=== PATIENT | male | born 1950 | race Caucasian/White ===

== ENCOUNTER → 2017-06-16 | Outpatient (CLI) | payer OTHER ==
[~2017-06-16] MED LIST: AMB10 PO; AMT10 PO; FLX10 PO; NXM/40 PO; OXYC-57 PO; PRAV20TA PO
--- NOTE | 2017-06-16 11:03 | DIAGNOSTIC IMAGING REPORT ---
MRI OF THE LUMBAR SPINE WITHOUT CONTRAST CLINICAL HISTORY: Lumbar radiculopathy. Left hip pain and left leg weakness. COMPARISON STUDY: No previous studies for comparison. TECHNIQUE: Utilizing a 1.5 Luana magnet and dedicated coil, multiplanar, multiecho imaging of the lumbar spine was performed without IV contrast. FINDINGS: For purposes of numbering on this exam, the L5-S1 disc space is assigned to axial image 23 of 25. Vertebral body heights are maintained. There is no suspicious marrow replacement. A 2.5 cm T1 and T2 hyperintense lesion within the L2 vertebral body reflects a hemangioma. A few smaller hemangiomas are noted. There is marked disc space narrowing with discogenic changes at L4-L5. There is no intracanalicular mass or fluid collection. The conus terminates at the mid L1 level. Paravertebral soft tissues are unremarkable. L1-2: The central canal and neural foramen are patent. L2-3: The central canal and neural foramen are patent. L3-4: There is mild disc bulge and facet arthrosis. The central canal and the neural foramen are patent. L4-5: There is disc space noted with disc bulge, ligamentous hypertrophy and facet arthrosis. This results in mild to moderate narrowing of the central canal, lateral recesses and neural foramen at this level. L5-S1: The central canal and neural foramen are patent. IMPRESSION: 1. Mild to moderate narrowing of the central canal, lateral recesses and neural foramen at L4-L5 due to disc bulge, ligamentous hypertrophy and facet arthrosis. 2. Otherwise, mild multilevel degenerative changes of the lumbar spine. 3. No lumbar spine fracture. Electronically signed by: Chan Garza M.D. 06/16/2017 11:02 AM Dictated Date/Time: 06/16/2017 10:56 AM
== END ==
LOC: C.MRI 08:59
PROVIDERS: ATTEND Physician Assistant
DX: M54.16 Radiculopathy, lumbar region (principal); R29.898 Other symptoms and signs involving the musculoskeletal system

== ENCOUNTER 2020-12-05 19:00 | Inpatient (IN) ==
[2020-12-05] MEDS ORDERED: ALBUT/IPRATROP 3MG/0.5MG NEB 3 ML VIAL NEB STA (19:28)
[2020-12-05] MEDS ORDERED: SODIUM CHLORIDE 0.9% 1000ML 1,000 ML IV ONE ×3 (19:28→22:49)
--- NOTE | 2020-12-05 19:50 | XRay Report ---
XR chest 1V portable HISTORY: Hypoxic. Altered mental status. COMPARISON: Chest 02/02/2018. FINDINGS: No pneumothorax. No pleural effusions. A few bibasilar linear densities consistent with sub segmental atelectasis or scarring. Otherwise, no focal lung consolidations to suggest pneumonia. No e vidence for pulmonary edema. The heart is normal in size. Incidental note is made of a right azygos l obe. IMPRESSION: No acute process. ACT 112: Negative or not required by law. Electronically signed by: French Isabel M.D. 12/05/2020 7:49 PM
[2020-12-05 20:03] LABS: Basophils # (auto) 0.01 K/uL (0-0.2); Basophils % (auto) 0.1 %; Hematocrit (blood only) 41.1 % (42-52); Hemoglobin 13.6 g/dL (14.0-18.0); Immature Granulocytes # (auto) 0.17 K/uL (0.00-0.02); Immature Granulocytes % (auto) 2.4 %; Lymphocytes # (auto) 0.49 K/uL (1.2-3.4); Lymphocytes % (auto) 6.8 %; Mean Corpuscular Hemoglobin 33.8 pg (25-34); Mean Corpuscular Hgb Conc 33.1 g/dL (32-36); Mean Corpuscular Volume 102.2 fL (80-100); Mean Platelet Volume 11.1 fL (7.4-10.4); Monocytes # (auto) 0.38 K/uL (0.11-0.59); Monocytes % (auto) 5.3 %; Neutrophils # (auto) 6.15 K/uL (1.4-6.5); Neutrophils % (auto) 85.4 %; Nucleated RBC # (auto) 0.07 K/uL (0-0); Platelet Count 208 K/uL (130-400); RDW Coefficient of Variation 13.5 % (11.5-14.5); Red Blood Count 4.02 M/uL (4.7-6.1)
[2020-12-05 20:16] LABS: Albumin Level 2.7 gm/dl (3.4-5.0); BUN Creatinine Ratio 21.9 (10-20); Bilirubin Direct 0.2 mg/dl (0-0.2); Bilirubin,Total 0.7 mg/dl (0.2-1); Calcium 8.8 mg/dl (8.5-10.1); Est GFR (African American) 37.6 ml/min; Est GFR (Non-African American) 32.4 ml/min; Magnesium 3.2 mg/dl (1.8-2.4); Potassium 4.5 mmol/L (3.5-5.1)
[2020-12-05 20:31] LABS: Base Excess VBG 2.3 mEq/L; HCO3 VBG 29 mmol/L; PCO2 VBG 53 mmHg (38-50); PO2 VBG 24 mmHg; pH VBG 7.36 (7.36-7.41)
[2020-12-05 20:34] LABS: Oxygen Saturation VBG < 60.0 %
--- NOTE | 2020-12-05 20:41 | CT Scan Report ---
HEAD CT NONCONTRAST CT DOSE: 884.08 mGy.cm HISTORY: Altered mental status. TECHNIQUE: Multiaxial CT images of the head were performed without the use of intravenous contrast. A utomated exposure control was utilized for this study. A dose lowering technique was utilized adheri ng to the principles of ALARA. Comparison: None. Findings: The paranasal sinuses and mastoid air cells are clear. The calvarium and skull base are int act. There is no mass, hematoma, midline shift, acute infarct. White matter hypodensity is nonspecifi c but suggestive of microvascular ischemic change. The ventricles and sulci demonstrate mild age-rela brennan involutional changes. Impression: No acute intracranial abnormality. ACT 112: Negative or not required by law. Electronically signed by: French Isabel M.D. 12/05/2020 8:40 PM
[2020-12-05 20:51] LABS: Beta-Hydroxybutyrate 19.84 mg/dl (0.2-2.81)
[2020-12-05] MEDS ORDERED: STAT IV Infusion **Titration per Protocol STA ×4 (21:53→23:37)
[2020-12-05] MEDS ORDERED: NORMOSOL-R 1,000 ML IV SCH (22:00)
[2020-12-05] MEDS ORDERED: NSS + 20MEQ KCL 20 MEQ/1,000 ML BAG IV SCH (22:00)
[2020-12-05] MEDS ORDERED: INSULIN REGULAR 250 UNITS in SODIUM CHLORIDE 0.9% 247.5 ML IV SCH (22:00)
--- NOTE | 2020-12-05 22:36 | Emergency Department Note ---
History of Present Illness General Chief complaint: Hyperglycemia Stated complaint: Hyperglycemia Time Seen by Provider: 12/05/20 19:19 Source: RN notes reviewed History of Present Illness Provider complaint: Altered mental status hyperglycemia 70-year-old male presents emergency department for altered mental status and high blood sugar. Nurse reports that EMS was called because the patient was acting abnormal to his friends. Per his friends the patient had been on a camping trip recently and was drinking alcohol and not eating a proper diabetic diet. Home Medications Medication Instructions Recorded Confirmed Type atorvastatin 40 mg tablet 40 mg PO QAM 02/01/18 12/05/20 History oxycodone 10 mg tablet,crush 10 mg PO Q12H 11/30/18 12/05/20 History resistant,extended release 12 hr (OxyContin) diazepam 5 mg tablet (Valium) 5 mg PO . Q AFTERNOON 04/04/19 12/05/20 History dexamethasone 4 mg tablet 4 mg PO . Q AFTERNOON 12/05/20 12/05/20 History lisinopril 20 mg tablet 20 mg PO QAM 12/05/20 12/05/20 History metformin 500 mg tablet,extended 1,000 mg PO BID 12/05/20 12/05/20 History release 24 hr omeprazole 20 mg capsule,delayed 20 mg PO QAM 12/05/20 12/05/20 History release zolpidem 10 mg tablet 10 mg PO HS 12/05/20 12/05/20 History Allergies Allergy/AdvReac Type Severity Reaction Status Date / Time Penicillins Allergy Mild Unknown Verified 12/05/20 19:46 Past Med/Surg History Medical History (Updated 12/05/20 @ 22:52 by Brock Ferrara) Degenerative disc disease CERVICAL BRACE (REMOVABLE) GIVEN TO PATIENT BY SURGEON TO WEAR 13/10 UNTIL SURGERY TO HELP "STABILIZE PAIN"- NO ACUTE FRACTURES/INJURY PER PATIENT Diabetes GERD (gastroesophageal reflux disease) CONTROLLED Hyperlipidemia Hypertension Scoliosis Thoracic spine pain Surgical History History of arthroscopy RIGHT KNEE History of cervical spinal arthrodesis C6-7 ACDF History of colonoscopy W/ POLYPECTOMY History of esophagogastroduodenoscopy (EGD) History of tonsillectomy Hx of neck surgery C6-7 fusion 01/2018 Family History Mother Family hx of colon cancer Social History Smoking Status: Never smoker Second Hand Exposure: No; Hx Alcohol Use: Yes Alcohol type: beer, wine and hard liquor Hx Substance Use: No Preferred Language: Persian Communication Ability: Effective Visual Impairment: No Limitations Immigration Lawyer Required: No Beliefs That Will Affect Care: None Current Living Situation: Spouse Feels Safe at Home: Yes Assistive Devices: Brace/Splint/Immobilizer and Glasses Review of Systems Unobtainable due to cognitive status Physical Exam Vital Signs Vital Signs - 24 hr 12/05/20 19:56 12/05/20 19:57 12/05/20 20:17 Temperature 36.5 C Temperature Source Oral Pulse Rate 110 H Pulse Rate [Right Apical] 83 Respiratory Rate 20 18 Respiratory Effort / Characteristics Non-Labored Spontaneous Spontaneous Respiratory Depth Normal Respiratory Pattern Regular Blood Pressure 116/85 Blood Pressure Mean 95 Blood Pressure Position Semi-fowlers Pulse Oximetry 89 L 89 L 96 Oxygen Delivery Method Room Air Room Air Nasal Cannula Nasal Cannula Oxygen Flow Rate 0 2 Sepsis Recent Fever Within 48 Hours No Sepsis New/Unexplained Change in Mental Status N/A Sepsis Action Taken by Nursing No Action Required Oxygen Flow Rate - Titration 2 Pulse Oximetry Post Tiitration 99 12/05/20 20:23 12/05/20 21:00 12/05/20 21:30 Temperature Temperature Source Pulse Rate 106 H 109 H 102 H Pulse Rate [Right Apical] Respiratory Rate 19 19 21 Respiratory Effort / Characteristics Respiratory Depth Respiratory Pattern Blood Pressure 135/82 125/77 144/78 H Blood Pressure Mean 99 93 100 Blood Pressure Position Pulse Oximetry 100 98 99 Oxygen Delivery Method Nasal Cannula Nasal Cannula Nasal Cannula Oxygen Flow Rate 2 2 2 Sepsis Recent Fever Within 48 Hours Sepsis New/Unexplained Change in Mental Status Sepsis Action Taken by Nursing Oxygen Flow Rate - Titration Pulse Oximetry Post Tiitration 12/05/20 22:00 12/05/20 22:30 Temperature Temperature Source Pulse Rate 100 H 101 H Pulse Rate [Right Apical] Respiratory Rate 19 15 Respiratory Effort / Characteristics Respiratory Depth Respiratory Pattern Blood Pressure 132/77 145/87 H Blood Pressure Mean 95 106 Blood Pressure Position Pulse Oximetry 97 98 Oxygen Delivery Method Room Air Nasal Cannula Oxygen Flow Rate 2 Sepsis Recent Fever Within 48 Hours Sepsis New/Unexplained Change in Mental Status Sepsis Action Taken by Nursing Oxygen Flow Rate - Titration Pulse Oximetry Post Tiitration Physical Exam GENERAL: Patient appears confused. HENT: Exam performed. - Head: Normocephalic and atraumatic. - Right Ear: External ear normal. No mastoid tenderness. - Left Ear: External ear normal. No mastoid tenderness. - Mouth/Throat: The oropharynx is clear and moist. No trismus in the jaw. No dental abscesses or uvula swelling. No oropharyngeal exudate or tonsillar abscesses. EYES: Conjunctivae and EOM are normal. Pupils are equal, round, and reactive to light. Right eye exhibits no discharge. Left eye exhibits no discharge. No scleral icterus. CV: Normal rate, regular rhythm, normal heart sounds and intact distal pulses. There is no peripheral edema. Palpable radial pulses bue. PULM/CHEST: Wheezing bilaterally. ABD: The abdomen is soft. NEURO: He is alert and oriented to place. He is not oriented to person or time he has normal strength and no sensory deficit. GCS eye subscore is 3. GCS verbal subscore is 4. GCS motor subscore is 6. SKIN: Warm and dry. Course Course 1918: The patient was evaluated in room C3. A complete history and physical exam was performed Cardiac monitoring: An order was placed for continuous cardiac monitoring. The monitor shows a rate of 110 with sinus tachycardia rhythm Patient found hypoxic on room air. Supplemental oxygen was applied to the patient which improved his oxygen saturation. Patient's glucose is elevated beyond capability of the glucometer. 1 L of normal saline ordered for the patient. 2135: Patient's oxygen saturation stable on supplemental oxygen. Labs show an elevated blood glucose greater than 800. Patient's osmolar gap is elevated. Patient's potassium is 4.5. Creatinine elevated 2.1. Patient be started on insulin drip as well as IV fluids with potassium supplementation for his HHS. Imaging within normal limits. [facility]. Administered Medications Insulin Human Regular 250 (units/ Sodium Chloride) 250 mls @ 8.2 mls/hr IV .Q24H [facility]; Protocol Stop: 01/04/21 21:59 Last Admin: 12/05/20 22:39 Dose: 8.2 units/hr, 8.2 mls/hr Documented by: [id number] Cosigned by: [id number] Potassium Chloride/Sodium Chloride (Normal Saline W/20 Meq Kcl) 20 meq in 1,000 mls @ 125 mls/hr IV .Q8H [facility] Stop: 01/04/21 21:59 Last Admin: 12/05/20 22:32 Dose: 125 mls/hr Documented by: [id number] Discontinued Medications Albuterol (Albut/Ipratrop 3mg/0.5mg Neb 3 Ml Vial) 3 ml NEB NOW STA Stop: 12/05/20 19:29 Last Admin: 12/05/20 20:15 Dose: 3 ml Documented by: [id number] Sodium Chloride (Nss 1000ml) 1,000 mls @ 999 mls/hr IV .Q1H1M ONE Stop: 12/05/20 20:28 Last Infusion: 12/05/20 20:41 Dose: 0 mls/hr Documented by: [id number] Admin: 12/05/20 19:40 Dose: 999 mls/hr Documented by: [id number] Sodium Chloride (Nss 1000ml) 1,000 mls @ 999 mls/hr IV .Q1H1M ONE Stop: 12/05/20 21:42 Last Infusion: 12/05/20 21:56 Dose: 0 mls/hr Documented by: [id number] Admin: 12/05/20 20:55 Dose: 999 mls/hr Documented by: [id number] Miscellaneous (Stat Iv Infusion Titration Per Protocol) 1 ea N/A NOW STA Stop: 12/05/20 21:54 Last Admin: 12/05/20 22:25 Dose: Not Given Documented by: [id number] Miscellaneous (Stat Iv Infusion Titration Per Protocol) 1 ea N/A NOW STA Stop: 12/05/20 21:54 Last Admin: 12/05/20 22:25 Dose: Not Given Documented by: [id number] Critical Care Time Critical Care Time: Yes Total Critical Care Time: 71 I have personally spent greater than 71 minutes of critical care time in the direct management of this patient. This includes bedside care, interpretation of diagnostic studies, and testing, discussion with consultants, patient, and f amily members, and other required patient management activities. This 71 minutes is in excess of all separately billable procedures. Medical Decision Making Laboratory Data Result diagrams: 12/05/20 19:18 12/05/20 19:18 Lab Results 12/05/20 12/05/20 12/05/20 Range/Units 19:16 19:18 19:18 WBC 7.20 (4.8-10.8) K/uL RBC 4.02 L (4.7-6.1) M/uL Hgb 13.6 L (14.0-18.0) g/dL Hct 41.1 L (42-52) % MCV 102.2 H (80-100) fL MCH 33.8 (25-34) pg MCHC 33.1 (32-36) g/dL RDW Std Deviation 50.0 H (36.4-46.3) fL RDW Coeff of Klaus 13.5 (11.5-14.5) % Plt Count 208 (130-400) K/uL MPV 11.1 H (7.4-10.4) fL Immature Gran % (Auto) 2.4 % Neut % (Auto) 85.4 % Lymph % (Auto) 6.8 % Crockett % (Auto) 5.3 % Eos % (Auto) 0.0 % Baso % (Auto) 0.1 % Neut # (Auto) 6.15 (1.4-6.5) K/uL Lymph # (Auto) 0.49 L (1.2-3.4) K/uL Crockett # (Auto) 0.38 (0.11-0.59) K/uL Eos # (Auto) 0.00 (0-0.5) K/uL Baso # (Auto) 0.01 (0-0.2) K/uL Immature Gran # (Auto) 0.17 H (0.00-0.02) K/uL Absolute Nucleated RBC 0.07 H (0-0) K/uL Nucleated RBC % (auto) 1.0 % PT Cancelled INR Cancelled APTT Cancelled PTT Ratio Cancelled VBG pH (7.36-7.41) VBG pCO2 (38-50) mmHg VBG pO2 mmHg VBG HCO3 mmol/L VBG O2 Saturation % VBG Base Excess mEq/L Barometric Pressure mm/Hg Sodium (136-145) mmol/L Potassium (3.5-5.1) mmol/L Chloride (98-107) mmol/L Carbon Dioxide (21-32) mmol/L Anion Gap (3-11) BUN (7-18) mg/dl Creatinine (0.6-1.4) mg/dl Est Cr Clr Drug Dosing ml/min Est GFR ( Amer) ml/min Est GFR (Non-Af Amer) ml/min BUN/Creatinine Ratio (10-20) Glucose (70-99) mg/dl POC Glucose > 600 H* (70-99) mg/dl Osmolality (280-300) mOsm/kg Calcium (8.5-10.1) mg/dl Magnesium (1.8-2.4) mg/dl Total Bilirubin (0.2-1) mg/dl Direct Bilirubin (0-0.2) mg/dl AST (15-37) U/L ALT (12-78) U/L Alkaline Phosphatase (45-117) U/L Ammonia (11-32) umol/L Total Creatine Kinase (39-308) U/L Total Protein (6.4-8.2) gm/dl Albumin (3.4-5.0) gm/dl Lipase (73-393) U/L Beta-Hydroxybutyric Acd (0.2-2.81) mg/dl Ethyl Alcohol mg/dL (0-3) mg/dl COVID-19 Eval Order SARS-CoV-2 (PCR) (Negative) 12/05/20 12/05/20 12/05/20 Range/Units 19:18 19:18 19:42 WBC (4.8-10.8) K/uL RBC (4.7-6.1) M/uL Hgb (14.0-18.0) g/dL Hct (42-52) % MCV (80-100) fL MCH (25-34) pg MCHC (32-36) g/dL RDW Std Deviation (36.4-46.3) fL RDW Coeff of Klaus (11.5-14.5) % Plt Count (130-400) K/uL MPV (7.4-10.4) fL Immature Gran % (Auto) % Neut % (Auto) % Lymph % (Auto) % Crockett % (Auto) % Eos % (Auto) % Baso % (Auto) % Neut # (Auto) (1.4-6.5) K/uL Lymph # (Auto) (1.2-3.4) K/uL [place]ckett # (Auto) (0.11-0.59) K/uL Eos # (Auto) (0-0.5) K/uL Baso # (Auto) (0-0.2) K/uL Immature Gran # (Auto) (0.00-0.02) K/uL Absolute Nucleated RBC (0-0) K/uL Nucleated RBC % (auto) % PT INR APTT PTT Ratio VBG pH (7.36-7.41) VBG pCO2 (38-50) mmHg VBG pO2 mmHg VBG HCO3 mmol/L VBG O2 Saturation % VBG Base Excess mEq/L Barometric Pressure mm/Hg Sodium 139 (136-145) mmol/L Potassium 4.5 (3.5-5.1) mmol/L Chloride 102 (98-107) mmol/L Carbon Dioxide 27 (21-32) mmol/L Anion Gap 11.0 (3-11) BUN 44 H (7-18) mg/dl Creatinine 2.01 H (0.6-1.4) mg/dl Est Cr Clr Drug Dosing 39.0 ml/min Est GFR ( Amer) 37.6 ml/min Est GFR (Non-Af Amer) 32.4 ml/min BUN/Creatinine Ratio 21.9 H (10-20) Glucose 801 H* (70-99) mg/dl POC Glucose (70-99) mg/dl Osmolality 349 H (280-300) mOsm/kg Calcium 8.8 (8.5-10.1) mg/dl Magnesium 3.2 H (1.8-2.4) mg/dl Total Bilirubin 0.7 (0.2-1) mg/dl Direct Bilirubin 0.2 (0-0.2) mg/dl AST 18 (15-37) U/L ALT 54 (12-78) U/L Alkaline Phosphatase 97 (45-117) U/L Ammonia (11-32) umol/L Total Creatine Kinase 56 (39-308) U/L Total Protein 6.0 L (6.4-8.2) gm/dl Albumin 2.7 L (3.4-5.0) gm/dl Lipase 140 (73-393) U/L Beta-Hydroxybutyric Acd 19.84 H (0.2-2.81) mg/dl Ethyl Alcohol mg/dL (0-3) mg/dl COVID-19 Eval Order Covid19 at [facility] SARS-CoV-2 (PCR) (Negative) 12/05/20 12/05/20 12/05/20 Range/Units 19:42 20:15 20:15 WBC (4.8-10.8) K/uL RBC (4.7-6.1) M/uL Hgb (14.0-18.0) g/dL Hct (42-52) % MCV (80-100) fL MCH (25-34) pg MCHC (32-36) g/dL RDW Std Deviation (36.4-46.3) fL RDW Coeff of Klaus (11.5-14.5) % Plt Count (130-400) K/uL MPV (7.4-10.4) fL Immature Gran % (Auto) % Neut % (Auto) % Lymph % (Auto) % Crockett % (Auto) % Eos % (Auto) % Baso % (Auto) % Neut # (Auto) (1.4-6.5) K/uL Lymph # (Auto) (1.2-3.4) K/uL Crockett # (Auto) (0.11-0.59) K/uL Eos # (Auto) (0-0.5) K/uL Baso # (Auto) (0-0.2) K/uL Immature Gran # (Auto) (0.00-0.02) K/uL Absolute Nucleated RBC (0-0) K/uL Nucleated RBC % (auto) % PT INR APTT PTT Ratio VBG pH 7.36 (7.36-7.41) VBG pCO2 53 H (38-50) mmHg VBG pO2 24 mmHg VBG HCO3 29 mmol/L VBG O2 Saturation < 60.0 % VBG Base Excess 2.3 mEq/L Barometric Pressure 733.2 mm/Hg Sodium (136-145) mmol/L Potassium (3.5-5.1) mmol/L Chloride (98-107) mmol/L Carbon Dioxide (21-32) mmol/L Anion Gap (3-11) BUN (7-18) mg/dl Creatinine (0.6-1.4) mg/dl Est Cr Clr Drug Dosing ml/min Est GFR ( Amer) ml/min Est GFR (Non-Af Amer) ml/min BUN/Creatinine Ratio (10-20) Glucose (70-99) mg/dl POC Glucose (70-99) mg/dl Osmolality (280-300) mOsm/kg Calcium (8.5-10.1) mg/dl Magnesium (1.8-2.4) mg/dl Total Bilirubin (0.2-1) mg/dl Direct Bilirubin (0-0.2) mg/dl AST (15-37) U/L ALT (12-78) U/L Alkaline Phosphatase (45-117) U/L Ammonia 36.7 H (11-32) umol/L Total Creatine Kinase (39-308) U/L Total Protein (6.4-8.2) gm/dl Albumin (3.4-5.0) gm/dl Lipase (73-393) U/L Beta-Hydroxybutyric Acd (0.2-2.81) mg/dl Ethyl Alcohol mg/dL (0-3) mg/dl COVID-19 Eval Order SARS-CoV-2 (PCR) NEGATIVE (Negative) 12/05/20 12/05/20 12/05/20 Range/Units 20:54 20:55 21:39 WBC (4.8-10.8) K/uL RBC (4.7-6.1) M/uL Hgb (14.0-18.0) g/dL Hct (42-52) % MCV (80-100) fL MCH (25-34) pg MCHC (32-36) g/dL RDW Std Deviation (36.4-46.3) fL RDW Coeff of Klaus (11.5-14.5) % Plt Count (130-400) K/uL MPV (7.4-10.4) fL Immature Gran % (Auto) % Neut % (Auto) % Lymph % (Auto) % Crockett % (Auto) % Eos % (Auto) % Baso % (Auto) % Neut # (Auto) (1.4-6.5) K/uL Lymph # (Auto) (1.2-3.4) K/uL [place]ckett # (Auto) (0.11-0.59) K/uL Eos # (Auto) (0-0.5) K/uL Baso # (Auto) (0-0.2) K/uL Immature Gran # (Auto) (0.00-0.02) K/uL Absolute Nucleated RBC (0-0) K/uL Nucleated RBC % (auto) % PT Cancelled INR Cancelled APTT Cancelled PTT Ratio Cancelled VBG pH (7.36-7.41) VBG pCO2 (38-50) mmHg VBG pO2 mmHg VBG HCO3 mmol/L VBG O2 Saturation % VBG Base Excess mEq/L Barometric Pressure mm/Hg Sodium (136-145) mmol/L Potassium (3.5-5.1) mmol/L Chloride (98-107) mmol/L Carbon Dioxide (21-32) mmol/L Anion Gap (3-11) BUN (7-18) mg/dl Creatinine (0.6-1.4) mg/dl Est Cr Clr Drug Dosing ml/min Est GFR ( Amer) ml/min Est GFR (Non-Af Amer) ml/min BUN/Creatinine Ratio (10-20) Glucose (70-99) mg/dl POC Glucose > 600 H* (70-99) mg/dl Osmolality (280-300) mOsm/kg Calcium (8.5-10.1) mg/dl Magnesium (1.8-2.4) mg/dl Total Bilirubin (0.2-1) mg/dl Direct Bilirubin (0-0.2) mg/dl AST (15-37) U/L ALT (12-78) U/L Alkaline Phosphatase (45-117) U/L Ammonia (11-32) umol/L Total Creatine Kinase (39-308) U/L Total Protein (6.4-8.2) gm/dl Albumin (3.4-5.0) gm/dl Lipase (73-393) U/L Beta-Hydroxybutyric Acd (0.2-2.81) mg/dl Ethyl Alcohol mg/dL < 3.0 (0-3) mg/dl COVID-19 Eval Order SARS-CoV-2 (PCR) (Negative) Imaging Data Radiologist's Impression: Head CT 12/05/20 19:[address] DOSE: 884.08 mGy.cm HISTORY: Altered mental status. TECHNIQUE: Multiaxial CT images of the head were performed without the use of intravenous contrast. Automated exposure control was utilized for this study. A dose lowering technique was utilized adhering to the principles of ALARA. Comparison: None. Findings: The paranasal sinuses and mastoid air cells are clear. The calvarium and skull base are intact. There is no mass, hematoma, midline shift, acute infarct. White matter hypodensity is nonspecific but suggestive of microvascular ischemic change. The ventricles and sulci demonstrate mild age-related involutional changes. Impression: No acute intracranial abnormality. ACT 112: Negative or not required by law. Electronically signed by: French Isabel M.D. 12/05/2020 8:40 PM Chest X-Ray 12/05/20 19:29 XR chest 1V portable HISTORY: Hypoxic. Altered mental status. COMPARISON: Chest 02/02/2018. FINDINGS: No pneumothorax. No pleural effusions. A few bibasilar linear densities consistent with subsegmental atelectasis or scarring. Otherwise, no focal lung consolidations to suggest pneumonia. No evidence for pulmonary edema. The heart is normal in size. Incidental note is made of a right azygos lobe. IMPRESSION: No acute process. ACT 112: Negative or not required by law. Electronically signed by: French Isabel M.D. 12/05/2020 7:49 PM ECG Data Indication: + altered mental status Rate (beats per minute): 107 Rhythm: + sinus tachycardia ECG Intervals/blocks: + Normal QRS, + Normal ND and + Normal QT-c ECG ST segments: + Normal ST segments MDM Narrative 1919: The patient was evaluated in room C3. A complete history and physical exam was performed Cardiac monitoring: An order was placed for continuous cardiac monitoring. The monitor shows a rate of 110 with sinus tachycardia rhythm Patient found hypoxic on room air. Supplemental oxygen was applied to the pa tient which improved his oxygen saturation. Patient's glucose is elevated beyond capability of the glucometer. 1 L of normal saline ordered for the patient. 2135: Patient's oxygen saturation stable on supplemental oxygen. Labs show an elevated blood glucose greater than 800. Patient's osmolar gap is elevated. Patient's potassium is 4.5. Creatinine elevated 2.1. Patient be started on insulin drip as well as IV fluids with potassium supplementation for his HHS. Imaging within normal limits. [facility]. Impression & Plan Hyperosmolar hyperglycemic state (HHS), HERI (acute kidney injury), Hypoxia, AMS (altered mental status) Discharge Plan Visit Data Chief Complaint: Hyperglycemia Stated Complaint: Hyperglycemia ED Provider: Brock Ferrara Discharge Problem: Hyperosmolar hyperglycemic state (HHS), HERI (acute kidney injury), Hypoxia, AMS (altered mental status) Patient Disposition: Admitted As Inpatient Forms Stand Alone Forms: [facility] Prescriptions Prescriptions: No Action diazepam [Valium] 5 mg tablet 5 mg PO . Q AFTERNOON RF: 0 oxycodone [OxyContin] 10 mg tablet,oral only,ext.rel.12 hr 10 mg PO Q12H RF: 0 atorvastatin 40 mg Tablet 40 mg PO QAM RF: 0 lisinopril 20 mg tablet 20 mg PO QAM RF: 0 omeprazole 20 mg capsule,delayed release(DR/EC) 20 mg PO QAM RF: 0 zolpidem 10 mg tablet 10 mg PO HS RF: 0 metformin 500 mg tablet extended release 24 hr 1,000 mg PO BID RF: 0 dexamethasone 4 mg tablet 4 mg PO . Q AFTERNOON RF: 0 Referrals Referrals: Ken Alvarez DO [Primary Care Provider] - Discharge Problem: AMS (altered mental status) Qualifiers: Coma depth: [place] coma 13-15 Coma timing: at arrival to emergency department
[2020-12-05 23:14] LABS: BUN Creatinine Ratio 23.1 (10-20); Calcium 8.3 mg/dl (8.5-10.1); Creatinine Clr Calc Pharmacy 48.7 ml/min; Est GFR (African American) 49.1 ml/min; Est GFR (Non-African American) 42.4 ml/min; Phosphorus 4.7 mg/dl (2.5-4.9); Potassium 4.7 mmol/L (3.5-5.1)
[2020-12-05 23:31] LABS: Beta-Hydroxybutyrate 11.7 mg/dl (0.2-2.81)
--- NOTE | 2020-12-06 02:51 | History and Physical Report ---
DATE OF ADMISSION: 12/05/2020. CHIEF COMPLAINT: Hyperglycemia. HISTORY OF PRESENT ILLNESS: This is a 70-year-old male with past medical history significant for type 2 diabetes, hyperlipidemia, hemorrhoids, hypertension, reflux esophagitis, osteoarthrosis, cervical disk disease, myalgia, myositis, pain in thoracic spine, occipital neuralgia, cerebellar tonsillar ectopia, insomnia, who lives alone, presents with exertion and weakness and found to be hyperglycemic. The patient says he was started on dexamethasone about 5 weeks ago because of his severe neck pain. He says dexamethasone is helping a lot with his pain and also with his ambulatory status. It looks like he does not want to stop it and since last 2 weeks he is camping outside and he was feeling very weak and exhausted and sugars were very high. He was not in DKA, but sugars when he came they were like 800s, currently this has come down to 500s. He seems to be somewhat weak, speaking in somewhat low voice, but alert and oriented. Seems to be dry. He says he is feeling better now. Denies any headache. No blurred visions, no earache, no runny nose, no sore throat, no cough, no dysphagia, no chest pain, no shortness of breath, no nausea, no vomiting, no diarrhea. Has some abdominal discomfort. No blood in the stools or black stools. Normal micturition. No swelling in the legs, no rash. ALLERGIES: PENICILLIN. PAST MEDICAL HISTORY: As mentioned above. PAST SURGICAL HISTORY: Arthroscopy of the right knee joint, colonoscopy, injection of the lumbosacral spine, upper endoscopy. MEDICATIONS: The patient is on atorvastatin 40 mg p.o. a.m., dexamethasone 4 mg in the afternoon, metformin 1000 mg p.o. b.i.d., Valium 5 mg p.o. q. afternoon, lisinopril 20 mg p.o. daily, omeprazole 20 mg daily, oxycodone extended release 10 mg p.o. b.i.d., zolpidem 10 mg p.o. at bedtime. FAMILY HISTORY: Significant for father has high cholesterol, heart disorder. SOCIAL HISTORY: Lives alone. Former smoker, smoked for 3 years, quit in 1974. Alcohol, wine daily. No drug use. REVIEW OF SYSTEMS: As per HPI. Rest of the review of systems is negative. PHYSICAL EXAMINATION: GENERAL: The patient is of moderate build, not in acute distress. VITAL SIGNS: Temperature 36.5, pulse 92, respiratory rate 16, blood pressure 134/82, oxygen initially was 98% and currently 96% on room air. HEENT: Pupils equal, round and reactive to light. Oral mucosa dry. NECK: No JVD or neck masses. CARDIOVASCULAR: S1 and S2 heard. Regular rate and rhythm. No murmur, no gallop. RESPIRATORY SYSTEM: Normal AP diameter. No accessory muscle use. No wheezing, no crackles. ABDOMEN: Soft, bowel sounds present, nontender, no distention. CENTRAL NERVOUS SYSTEM: Cranial nerves II-XII grossly intact, nonfocal. EXTREMITIES: No edema, no erythema. LABORATORY DATA: WBC 7.2, hemoglobin 13.6, hematocrit 41.1, platelets 208. Venous blood gas, pH of 7.34, pCO2 of 53, pO2 of 24, bicarbonate 29. Sodium 144, potassium 4.7, chloride 109, bicarbonate 29, BUN 37, creatinine 1.6, serum glucose when he came in was 801, currently 570. Urine osmolality 349, calcium 8.3, phosphorus 4.7, magnesium 3.2, total bilirubin 0.7, direct bilirubin 0.2, AST 18, ALT 54, alkaline phosphatase 97, ammonia 36.7, lipase 140. Beta hydroxybutyric acid 11.7. Ethyl alcohol less than 3. SARS-CoV-2 PCR negative. IMAGING DATA: Chest x-ray, no acute process. CT of the head, no acute intracranial abnormality. EKG: Sinus tachycardia at a rate of 107, nonspecific T-wave abnormalities. ASSESSMENT AND PLAN: This is a 70-year-old male who was recently started on dexamethasone and presents with weakness and exhaustion and found to be having high sugars. 1. Probably HHS: Started on insulin drip protocol.The patient's status is improved. Aggressive IV fluids. IV fluids as per protocol. Labs as per protocol. Diabetic education and consult glycemic pharmacy and closely monitor in the med tele. 2. Acute kidney injury: Currently with a creatinine of 1.6. Follow the repeat labs in the a.m. 3. History of hypertension: Will hold his lisinopril. Monitor his blood pressure. Will place him on IV hydralazine p.r.n. 4. History of hyperlipidemia: Continue statin. 5. History of chronic cervical disk disease with myalgia and myositis pain thoracic spine, occipital neuralgia. Continue his oxycodone p.r.n. He has been taking Decadron 5 weeks. Will continue for now. The patient wants to be on it. Needs followup 6. Gastroesophageal reflux disease: Continue omeprazole. 7. Insomnia: On zolpidem p.r.n. 8. Deep venous thrombosis prophylaxis: Placed him on heparin subcutaneously. DISPOSITION: Closely monitor in the med tele. Level 1 full code. Expect to discharge home and follow with family doctor. Job ID: [id number] [facility]
[2020-12-06 03:04] LABS: BUN Creatinine Ratio 25.3 (10-20); Calcium 8.2 mg/dl (8.5-10.1); Creatinine Clr Calc Pharmacy 57.6 ml/min; Est GFR (African American) 60.2 ml/min; Potassium 4.3 mmol/L (3.5-5.1)
[2020-12-06 03:20] LABS: Phosphorus 2.8 mg/dl (2.5-4.9)
[2020-12-06] MEDS ORDERED: diazePAM 5 MG TABLET PO SCH (03:22)
[2020-12-06] MEDS ORDERED: PHARMACY GLYCEMIC MGMT CONSULT PRN (03:22)
[2020-12-06] MEDS ORDERED: HHS GOAL RANGE 250-350 mg/dl ONE (03:22)
[2020-12-06] MEDS ORDERED: INSULIN REGULAR 250 UNITS in SODIUM CHLORIDE 0.9% 247.5 ML IV SCH (03:22)
[2020-12-06] MEDS ORDERED: PENDING 1/2NSS+20mEq KCL IVF SCH (03:22)
[2020-12-06] MEDS ORDERED: NITROGLYCERIN SL 0.4 MG/TAB TAB SL PRN (03:22)
[2020-12-06] MEDS ORDERED: ONDANSETRON INJ 2 MG/ML 2 ML VIAL IV PRN (03:22)
[2020-12-06] MEDS ORDERED: oxyCODONE HCL 10 MG TABCR (OxyCONTIN) PO SCH ×2 (03:22)
[2020-12-06] MEDS ORDERED: DC ALL PREVIOUSLY ORDERED DIABETES MEDS ONE (03:22)
[2020-12-06] MEDS ORDERED: POLYETHYLENE (MIRALAX) 17 GM PACK PO PRN (03:22)
[2020-12-06] MEDS ORDERED: hydrALAZINE HCL 20 MG/ML VIAL IV PRN (03:22)
[2020-12-06] MEDS ORDERED: PENDING D5 1/2NS+20mEq KCL IVF SCH (03:22)
[2020-12-06] MEDS ORDERED: SODIUM CHLORIDE 0.9% 1000ML 1,000 ML IV SCH (03:45)
[2020-12-06] MEDS ORDERED: DEXTROSE 50% 50 ML SYRINGE IV ONE (04:59)
[2020-12-06] MEDS ORDERED: ENOXAPARIN INJ 40 MG/0.4 ML SYR SQ SCH (05:00)
[2020-12-06] MEDS ORDERED: oxyCODONE HCL 10 MG TABCR (OxyCONTIN) PO PRN (05:30)
[2020-12-06] MEDS: D5W AND 1/2NSS + 20MEQ KCL 20 MEQ/1,000 ML BAG IV SCH ×2 (05:43→13:41)
[2020-12-06] MEDS ORDERED: INSULIN ASPART 100 UNITS/ML 3 ML PEN SC SCH (07:30)
[2020-12-06 07:37] LABS: BUN Creatinine Ratio 28.5 (10-20); Calcium 8.3 mg/dl (8.5-10.1); Creatinine Clr Calc Pharmacy 68.3 ml/min; Est GFR (African American) 73.8 ml/min; Est GFR (Non-African American) 63.7 ml/min; Magnesium 2.6 mg/dl (1.8-2.4); Phosphorus 2.9 mg/dl (2.5-4.9); Potassium 4.5 mmol/L (3.5-5.1)
[2020-12-06] MEDS: lisinopril 20 MG TAB PO SCH (07:54)
[2020-12-06] MEDS: ATORVASTATIN 40 MG TAB PO SCH (07:55)
[2020-12-06] MEDS: PANTOprazole 40 MG TAB PO SCH (07:55)
[2020-12-06] MEDS: INSULIN ASPART 100 UNITS/ML 3 ML PEN SC SCH ×5 (08:32→21:35)
[2020-12-06 08:41] LABS: Estimated Average Glucose 324 mg/dl; Hemoglobin A1C 12.9 % (4.5-5.6)
[2020-12-06] MEDS ORDERED: lisinopril 20 MG TAB PO SCH (09:00)
[2020-12-06] MEDS ORDERED: INSULIN GLARGINE SOLOSTAR 100 UNITS/ML 3 ML PEN SC ONE ×3 (09:30→21:00)
[2020-12-06] MEDS: dexAMETHasone 4 MG TAB PO SCH ×3 (11:04→17:41)
--- NOTE | 2020-12-06 11:14 | Pharmacy Report ---
Pharmacy Glycemic Short Note 2 - Date of Service December 06, 2020 - Glycemic Short BSG Results (Last 24 hours): 12/05/20 12/05/20 12/05/20 19:16 19:18 21:39 Glucose 801 H* POC Glucose > 600 H* > 600 H* 12/05/20 12/05/20 12/06/20 22:38 23:36 00:37 Glucose 570 H* POC Glucose 488 H* 408 H* 12/06/20 12/06/20 12/06/20 02:22 02:50 04:51 Glucose 253 H POC Glucose 240 H 112 H 12/06/20 12/06/20 12/06/20 05:18 06:39 06:41 Glucose 283 H POC Glucose 145 H 220 H 12/06/20 12/06/20 12/06/20 07:23 08:29 09:31 Glucose POC Glucose 235 H 270 H 275 H 12/06/20 10:23 Glucose POC Glucose 277 H OUTPATIENT ANTIDIABETIC REGIMEN: * Metformin 1000 mg PO BID ASSESSMENT: * Patient admitted for HHS last night. He has been on Decadron 4 mg PO BID for 5 weeks which may have caused the HHS. * Decadron PO BID continued on admission. * Metformin on hold during admission. * Insulin drip started last night. On an average patient has required around 30 units in 6 hours. BSGs trended down and drip was paused for short time this AM. Currently BSG trending up above 200 mg/dl. * AM labs indicate that HHS has resolved. Lantus 20 units x1 dose given around 1000 today. Lantus dose scale at HS ordered based on BSG. * BSG trended down to 100 mg/dl at lunch time. Insulin drip discontinued. * Novolog ACHS ordered to start at dinner- dosing based on wt and stress of 3 to take care of steroid induced hyperglycemia from PO Decadron. PLAN FOR INPATIENT GLYCEMIC CONTROL: * Hold outpatient oral Metformin * Basal insulin * Lantus 20 units SQ x1 this AM. * Lantus 10-20 units dose scale SQ at HS based on BSG * Bolus insulin * NovoLog per scale ACHS or Q6hrs while NPO * Goal Range: Low 110 mg/dL - High 140 mg/dL * Correction Factor: 20 mg/dL/unit * Nutritional / Prandial insulin per carb ratio of 1 unit per 8 grams CHO consumed PLAN FOR DISCHARGE: * HbA1c = 12.9% indicates poorly controlled diabetes. * Patient will most likely need an insulin in addition to the home Metformin regimen. Dosing to be determined.
[2020-12-06 11:32] LABS: BUN Creatinine Ratio 24.1 (10-20); Calcium 7.8 mg/dl (8.5-10.1); Creatinine Clr Calc Pharmacy 67.2 ml/min; Est GFR (African American) 72.3 ml/min; Est GFR (Non-African American) 62.4 ml/min; Potassium 4.4 mmol/L (3.5-5.1)
[2020-12-06 11:58] LABS: Phosphorus 1.4 mg/dl (2.5-4.9)
[2020-12-06] MEDS ORDERED: SODIUM PHOSPHATE 3 MMOL/1 ML 5 ML VIAL IV ONE (12:21)
[2020-12-06] MEDS ORDERED: SODIUM PHOSPHATE 30 MMOL in SODIUM CHLORIDE 0.9% 500 ML IV ONE (12:45)
[2020-12-06] MEDS: HEPARIN SOD 5,000 UNIT/0.5 ML VIAL SQ SCH ×2 (13:42→21:36)
--- NOTE | 2020-12-06 15:04 | Hospitalist Progress Note ---
Date of Service December 06, 2020 Assessment & Plan (1) Hyperosmolar hyperglycemic state (HHS): Plan: Presented with weakness, exertional fatigue and noted to have blood sugar of more than 800 Has type 2 diabetes with HHS Has been started with intravenous fluid and intravenous insulin Glycemic pharmacist has been consulted-appreciate input and recommendation Hemoglobin A1c 12.9 Blood sugar has been improving Diabetic diet and diabetic teaching Will need insulin on discharge Electrolyte imbalance Hypophosphatemia Will be replaced and rechecked (2) Type 2 diabetes mellitus: Plan: Has been on dexamethasone for the last 5 weeks for chronic neck pain Likely because of increasing blood sugar and very high hemoglobin A1c of 12.9 (3) HERI (acute kidney injury): Plan: Presented with creatinine of 2.01 Secondary to dehydration and HH S from diabetes type 2 Receiving intravenous fluid and the creatinine has been improving towards normal (4) History of cervical spinal arthrodesis: Plan: Has been getting dexamethasone for the last 5 weeks It has been helping his neck pain and does not want to discontinue the medication (5) Hypertension: Plan: Remains the lower side of normal (6) Hyperlipidemia: Plan: Continue statin (7) GERD (gastroesophageal reflux disease): Plan: Continue PPI Admission and Anticipated Discharge Date Admission Date: December 06, 2020 Subjective 12/06/2020 The patient was seen and examined in medical telemetry unit He was admitted with weakness and exertional fatigue and was noted to have very hyperglycemic He has been on dexamethasone for neck pain for the last 5 weeks Has been complaining of shoulder and pelvic girdle weakness but denies any other symptoms Review of Systems Review of Systems: All systems reviewed and are unremarkable except as noted below Musculoskeletal: Weakness involving shoulder and pelvic girdle Physical Exam Physical Exam: Lying in bed comfortably Constitutional: well developed, well nourished, + ill appearing and + obese Eyes: PERRL, conjunctivae normal, anicteric sclerae ENMT: external ear and nose normal, oropharynx normal Neck: trachea midline, no thyromegaly Respiratory: no respiratory distress Auscultation: lungs clear to auscultation bilaterally Cardiovascular: Rate/Rhythm: regular rate, regular rhythm and + tachycardic Heart Sounds: normal S1 and normal S2; no murmur Extremities: no edema Gastrointestinal (Abdomen): Inspection/Auscultation: normal bowel sounds; abdomen not distended Percussion/Palpation: abdomen soft; abdomen nontender Musculoskeletal: No acute arthritis in any joint Neurologic: Alert, awake and oriented x3. Generally weak. No focal sensory or motor deficit appreciated Results & Data Results & Data ([facility]) Vital Signs (Past 12 Hours) Vital Signs Temp Pulse Pulse Resp BP BP Pulse Ox 12/06/20 11:09 36.6 C 114 H 16 93/55 L 92 12/06/20 10:40 108 H 12/06/20 07:40 36.3 C L 99 H 20 136/82 91 12/06/20 05:36 96 H 12/06/20 03:22 36.0 C L 101 H 20 94 Laboratory Results Short CBC 12/05/20 Range/Units 19:18 WBC 7.20 (4.8-10.8) K/uL Hgb 13.6 L (14.0-18.0) g/dL Hct 41.1 L (42-52) % Plt Count 208 (130-400) K/uL BMP 12/05/20 12/05/20 12/06/20 19:18 22:38 02:22 Sodium 139 144 147 H Potassium 4.5 4.7 4.3 Chloride 102 109 H 116 H Carbon Dioxide 27 29 27 BUN 44 H 37 H 34 H Creatinine 2.01 H 1.61 H D 1.36 Glucose 801 H* 570 H* 253 H Calcium 8.8 8.3 L 8.2 L 12/06/20 12/06/20 06:41 11:02 Sodium 144 144 Potassium 4.5 4.4 Chloride 114 H 111 H Carbon Dioxide 25 26 BUN 33 H 28 H Creatinine 1.15 1.17 Glucose 283 H 206 H Calcium 8.3 L 7.8 L Cardiac Enzymes 12/05/20 Range/Units 19:18 Total Creatine Kinase 56 (39-308) U/L Liver Function 12/05/20 Range/Units 19:18 Total Bilirubin 0.7 (0.2-1) mg/dl Direct Bilirubin 0.2 (0-0.2) mg/dl AST 18 (15-37) U/L ALT 54 (12-78) U/L Alkaline Phosphatase 97 (45-117) U/L Albumin 2.7 L (3.4-5.0) gm/dl Medications Administered Current Inpatient Medications Acetaminophen (Acetaminophen 325 Mg Tab) 650 mg PO Q4H PRN PRN Reason: Pain or Fever Stop: 01/05/21 03:21 Atorvastatin Calcium (Atorvastatin 40 Mg Tab) 40 mg PO QAM [facility] Stop: 01/05/21 08:59 Last Admin: 12/06/20 07:55 Dose: 40 mg Documented by: Dexamethasone (Dexamethasone 4 Mg Tab) 4 mg PO BIDM [facility] Stop: 01/05/21 07:59 Last Admin: 12/06/20 11:04 Dose: 4 mg Documented by: Heparin Sodium (Porcine) (Heparin Sod 5,000 Unit/0.5 Ml Vial) 5,000 units SQ Q8 [facility] Stop: 01/05/21 13:59 Last Admin: 12/06/20 13:42 Dose: 5,000 units Documented by: Hydralazine HCl (Hydralazine Hcl 20 Mg/Ml Vial) 5 mg IV Q6H PRN PRN Reason: Hypertension Stop: 01/05/21 03:21 Potassium Chloride/Dextrose/Sod Cl (D5w And 1/2nss + 20meq Kcl) 20 meq in 1,000 mls @ 150 mls/hr IV .Q6H40M [facility] Stop: 01/05/21 04:29 Last Admin: 12/06/20 13:41 Dose: 150 mls/hr Documented by: Sodium Phosphate 30 mmol/ (Sodium Chloride) 510 mls @ 88 mls/hr IV ONE ONE Stop: 12/06/20 18:32 Last Admin: 12/06/20 13:37 Dose: 88 mls/hr Documented by: Insulin Aspart (Insulin Aspart 100 Units/Ml 3 Ml Pen) 0 units SC 0000,0400 [facility] Stop: 12/07/20 04:01 Insulin Aspart (Insulin Aspart 100 Units/Ml 3 Ml Pen) 0 units SC ACHS [facility] Stop: 01/05/21 16:29 Insulin Glargine (Insulin Glargine Solostar 100 Units/Ml 3 Ml Pen) 0 units SC HS ONE; Protocol Stop: 12/06/20 21:01 Lisinopril (Lisinopril 20 Mg Tab) 20 mg PO QAM [facility] Stop: 01/05/21 08:59 Last Admin: 12/06/20 07:54 Dose: 20 mg Documented by: Miscellaneous Information (Pharmacy Glycemic Mgmt Consult) 1 ea N/A UD PRN PRN Reason: Consult Stop: 01/05/21 03:21 Nitroglycerin (Nitroglycerin Sl 0.4 Mg/Tab Tab) 0.4 mg SL UD PRN PRN Reason: Chest Pain Stop: 01/05/21 03:21 Ondansetron HCl (Ondansetron Inj 2 Mg/Ml 2 Ml Vial) 4 mg IV Q6H PRN PRN Reason: Nausea Stop: 01/05/21 03:21 Oxycodone HCl (Oxycodone Hcl 10 Mg Tabcr (Oxycontin)) 10 mg PO Q12H PRN PRN Reason: Pain Stop: 12/20/20 05:29 Pantoprazole Sodium (Pantoprazole 40 Mg Tab) 40 mg PO QAM [facility]; Protocol Stop: 01/05/21 08:59 Last Admin: 12/06/20 07:55 Dose: 40 mg Documented by: Polyethylene Glycol (Polyethylene (Miralax) 17 Gm Pack) 17 gm PO DAILY PRN PRN Reason: Constipation Stop: 01/05/21 03:21 Zolpidem Tartrate (Zolpidem Tartrate 10 Mg Tab) 10 mg PO BID@0000,1800 [facility] Stop: 01/05/21 17:59
[2020-12-06 16:36] LABS: BUN Creatinine Ratio 27.1 (10-20); Calcium 7.7 mg/dl (8.5-10.1); Creatinine Clr Calc Pharmacy 89.3 ml/min; Est GFR (African American) 100.2 ml/min; Est GFR (Non-African American) 86.4 ml/min; Magnesium 2.2 mg/dl (1.8-2.4); Potassium 4.3 mmol/L (3.5-5.1)
[2020-12-06 16:42] LABS: Phosphorus 2.4 mg/dl (2.5-4.9)
[2020-12-06] MEDS: NSS + 20MEQ KCL 20 MEQ/1,000 ML BAG IV SCH (17:38)
[2020-12-06] MEDS: ZOLPIDEM TARTRATE 10 MG TAB PO SCH (17:53)
[2020-12-06 20:31] LABS: BUN Creatinine Ratio 28.1 (10-20); Calcium 7.8 mg/dl (8.5-10.1); Creatinine Clr Calc Pharmacy 92.5 ml/min; Est GFR (African American) 101.6 ml/min; Est GFR (Non-African American) 87.7 ml/min; Magnesium 2.1 mg/dl (1.8-2.4); Potassium 4.1 mmol/L (3.5-5.1)
[2020-12-06 20:42] LABS: Phosphorus 3.6 mg/dl (2.5-4.9)
[2020-12-06] MEDS ORDERED: ZOLPIDEM TARTRATE 10 MG TAB PO SCH (21:00)
[2020-12-07 00:22] LABS: BUN Creatinine Ratio 28.7 (10-20); Calcium 7.5 mg/dl (8.5-10.1); Creatinine Clr Calc Pharmacy 93.6 ml/min; Est GFR (African American) 102.1 ml/min; Est GFR (Non-African American) 88.1 ml/min; Magnesium 2.1 mg/dl (1.8-2.4); Potassium 3.7 mmol/L (3.5-5.1)
[2020-12-07 00:27] LABS: Phosphorus 2.9 mg/dl (2.5-4.9)
[2020-12-07] MEDS: INSULIN ASPART 100 UNITS/ML 3 ML PEN SC SCH ×6 (00:28→20:09)
[2020-12-07] MEDS: ZOLPIDEM TARTRATE 10 MG TAB PO SCH ×2 (01:35→17:18)
[2020-12-07] MEDS: NSS + 20MEQ KCL 20 MEQ/1,000 ML BAG IV SCH ×2 (03:40→15:51)
[2020-12-07] MEDS: HEPARIN SOD 5,000 UNIT/0.5 ML VIAL SQ SCH ×3 (05:59→20:08)
--- NOTE | 2020-12-07 06:05 | Electrocardiogram Report ---
Test Reason : Blood Pressure : / mmHG Vent. Rate : 107 BPM Atrial Rate : 107 BPM P-R Int : 122 ms QRS Dur : 096 ms QT Int : 330 ms P-R-T Axes : 025 -09 070 degrees QTc Int : 440 ms Sinus tachycardia Possible Left atrial enlargement Nonspecific T wave abnormality Abnormal ECG When compared with ECG of 02-SEP-2020 10:58, Nonspecific T wave abnormality, worse in Inferior leads Nonspecific T wave abnormality now evident in Lateral leads Confirmed by Greg Galdamez ([id number]) on 12/07/2020 6:04:41 AM Referred By: REFERRED SELF Confirmed By:Greg Galdamez
[2020-12-07 06:55] LABS: Eosinophils # (auto) 0.01 K/uL (0-0.5); Eosinophils % (auto) 0.2 %; Hematocrit (blood only) 31.9 % (42-52); Hemoglobin 10.8 g/dL (14.0-18.0); Immature Granulocytes # (auto) 0.17 K/uL (0.00-0.02); Immature Granulocytes % (auto) 3.5 %; Lymphocytes # (auto) 0.62 K/uL (1.2-3.4); Lymphocytes % (auto) 12.7 %; Mean Corpuscular Hemoglobin 33.1 pg (25-34); Mean Corpuscular Hgb Conc 33.9 g/dL (32-36); Mean Corpuscular Volume 97.9 fL (80-100); Mean Platelet Volume 10.3 fL (7.4-10.4); Monocytes # (auto) 0.25 K/uL (0.11-0.59); Monocytes % (auto) 5.1 %; Neutrophils # (auto) 3.84 K/uL (1.4-6.5); Neutrophils % (auto) 78.5 %; Nucleated RBC # (auto) 0.04 K/uL (0-0); Nucleated RBC % (auto) 0.7 %; Platelet Count 126 K/uL (130-400); RDW Coefficient of Variation 13.7 % (11.5-14.5); RDW Standard Deviation 48.2 fL (36.4-46.3); Red Blood Count 3.26 M/uL (4.7-6.1); White Blood Count 4.89 K/uL (4.8-10.8)
[2020-12-07 07:23] LABS: Platelet Estimate Decreased (Normal)
[2020-12-07 07:31] LABS: Est GFR (African American) 104.2 ml/min; Est GFR (Non-African American) 89.9 ml/min; Potassium 3.9 mmol/L (3.5-5.1)
[2020-12-07 07:32] LABS: Albumin Globulin Ratio 0.6 (0.9-2); Albumin Level 1.7 gm/dl (3.4-5.0); Bilirubin,Total 0.4 mg/dl (0.2-1); Calcium 7.9 mg/dl (8.5-10.1); Creatinine Clr Calc Pharmacy 98.2 ml/min; Globulin 2.6 gm/dl (2.5-4.0); Total Protein 4.3 gm/dl (6.4-8.2)
--- NOTE | 2020-12-07 07:56 | XRay Report ---
XR chest 1V portable HISTORY: hypoxia COMPARISON: Chest 12/05/2020. FINDINGS: There are low lung volumes. No pneumothorax. The heart remains enlarged. There is perihilar interstitial/vascular thickening with hazy perihilar airspace opacities. No definite pleural effusio ns. Cervical spinal fusion hardware is noted. IMPRESSION: Cardiomegaly with perihilar hazy airspace opacities and interstitial/vascular thickening. This sugges ts pulmonary edema. An atypical pneumonia could also have a similar appearance. ACT 112: Negative or not required by law. Electronically signed by: French Isabel M.D. 12/07/2020 7:54 AM
[2020-12-07] MEDS: dexAMETHasone 4 MG TAB PO SCH ×2 (08:10→17:17)
[2020-12-07] MEDS: ATORVASTATIN 40 MG TAB PO SCH (08:13)
[2020-12-07] MEDS: PANTOprazole 40 MG TAB PO SCH (08:13)
[2020-12-07] MEDS ORDERED: INSULIN GLARGINE SOLOSTAR 100 UNITS/ML 3 ML PEN SC SCH (09:00)
[2020-12-07] MEDS: lisinopril 20 MG TAB PO SCH (09:42)
[2020-12-07] MEDS ORDERED: Nursing to Pharmacy Communication SCH (10:15)
--- NOTE | 2020-12-07 15:17 | Pharmacy Report ---
Pharmacy Glycemic Short Note 2 - Date of Service December 07, 2020 - Glycemic Short BSG Results (Last 24 hours): 12/06/20 12/06/20 12/06/20 15:45 16:25 19:52 Glucose 178 H 235 H POC Glucose 217 H 12/06/20 12/06/20 12/07/20 19:57 23:10 00:25 Glucose 197 H POC Glucose 261 H 163 H 12/07/20 12/07/20 12/07/20 04:19 06:36 07:52 Glucose 108 H POC Glucose 115 H 101 H 12/07/20 11:40 Glucose POC Glucose 149 H OUTPATIENT ANTIDIABETIC REGIMEN: * Metformin 1000 mg PO BID ASSESSMENT: 12/07: * Patient received 56 units of SQ insulin yesterday in addition to IV infusion * Fasting BSG of 101 mg/dL is at goal. * Post prandial BSG at lunch significantly improved compared to yesterday. * Patient has refused the last two doses of dexamethasone, therefore I antici villegas insulin needs to decrease 12/06: * Patient admitted for HHS last night. He has been on Decadron 4 mg PO BID for 5 weeks which may have caused the HHS. * Decadron PO BID continued on admission. * Metformin on hold during admission. * Insulin drip started last night. On an average patient has required around 30 units in 6 hours. BSGs trended down and drip was paused for short time this AM. Currently BSG trending up above 200 mg/dl. * AM labs indicate that HHS has resolved. Lantus 20 units x1 dose given around 1000 today. Lantus dose scale at HS ordered based on BSG. * BSG trended down to 100 mg/dl at lunch time. Insulin drip discontinued. * Novolog ACHS ordered to start at dinner- dosing based on wt and stress of 3 to take care of steroid induced hyperglycemia from PO Decadron. PLAN FOR INPATIENT GLYCEMIC CONTROL: * Hold outpatient oral Metformin * Basal insulin - decrease * Lantus 8 units SQ x1 this AM, then BID per BSG scale * 8 units for < 140 mg/dL, 14 units for 140-200 mg/dL, 20 units for > 200 mg/dL * Bolus insulin * NovoLog per scale ACHS or Q6hrs while NPO * Goal Range: Low 110 mg/dL - High 140 mg/dL * Correction Factor: 20 mg/dL/unit * Nutritional / Prandial insulin per carb ratio of 1 unit per 8 grams CHO consumed PLAN FOR DISCHARGE: * HbA1c = 12.9% indicates poorly controlled diabetes. * Patient will most likely need an insulin in addition to the home Metformin regimen. Dosing to be determined.
--- NOTE | 2020-12-07 15:47 | Hospitalist Progress Note ---
Date of Service December 07, 2020 Assessment & Plan (1) Hyperosmolar hyperglycemic state (HHS): Plan: Presented with weakness, exertional fatigue and noted to have blood sugar of more than 800 Has type 2 diabetes with HHS Has been started with intravenous fluid and intravenous insulin Glycemic pharmacist has been consulted-appreciate input and recommendation Hemoglobin A1c 12.9 Blood sugar has been improving Diabetic diet and diabetic teaching-appreciate input and recommendation His hemoglobin A1c prior to use of dexamethasone was 6.8 and he does not want to continue dexamethasone on discharge He is not planning to use any insulin on discharge Electrolyte imbalance Hypophosphatemia Will be replaced and rechecked Normalized (2) Type 2 diabetes mellitus: Plan: Has been on dexamethasone for the last 5 weeks for chronic neck pain Likely because of increasing blood sugar and very high hemoglobin A1c of 12.9 Prior to starting dexamethasone his A1c was 6.8 (3) HERI (acute kidney injury): Plan: Presented with creatinine of 2.01 Secondary to dehydration and HH S from diabetes type 2 Receiving intravenous fluid and the creatinine has been improving towards normal Creatinine has been normalized (4) History of cervical spinal arthrodesis: Plan: Has been getting dexamethasone for the last 5 weeks It has been helping his neck pain and does not want to discontinue the medication He plans to discontinue dexamethasone (5) Hypertension: Plan: Remains the lower side of normal (6) Hyperlipidemia: Plan: Continue statin (7) GERD (gastroesophageal reflux disease): Plan: Continue PPI Admission and Anticipated Discharge Date Admission Date: December 05, 2020 Subjective 12/06/2020 The patient was seen and examined in medical telemetry unit He was admitted with weakness and exertional fatigue and was noted to have very hyperglycemic He has been on dexamethasone for neck pain for the last 5 weeks Has been complaining of shoulder and pelvic girdle weakness but denies any other symptoms 12/07/2020 The patient was seen and examined in medical telemetry unit He remains generally weak and lethargic but otherwise denies any other symptoms His pelvic girdle and shoulder girdle weakness have been getting better Review of Systems Review of Systems: All systems reviewed and are unremarkable except as noted below Musculoskeletal: Weakness involving shoulder and pelvic girdle Physical Exam Physical Exam: Lying in bed comfortably Constitutional: well developed, well nourished, + ill appearing and + obese Eyes: PERRL, conjunctivae normal, anicteric sclerae ENMT: external ear and nose normal, oropharynx normal Neck: trachea midline, no thyromegaly Respiratory: no respiratory distress Auscultation: lungs clear to auscultation bilaterally Cardiovascular: Rate/Rhythm: regular rate, regular rhythm and + tachycardic Heart Sounds: normal S1 and normal S2; no murmur Extremities: no edema Gastrointestinal (Abdomen): Inspection/Auscultation: normal bowel sounds; abdomen not distended Percussion/Palpation: abdomen soft; abdomen nontender Musculoskeletal: No acute arthritis involving any joint Neurologic: Alert, awake and oriented x3. Generally weak but no focal sensory or motor deficit appreciated Lymphatic: no cervical or axillary lymphadenopathy Results & Data Results & Data ([facility]) Vital Signs (Past 12 Hours) Vital Signs Temp Pulse Pulse Resp BP Pulse Ox Pulse Ox 12/07/20 15:10 36.9 C 88 20 93/56 L 90 12/07/20 11:58 36.4 C L 67 20 93/54 L 92 12/07/20 10:15 63 12/07/20 10:08 91 12/07/20 08:15 37.2 C 62 20 92/52 L 92 Pulse Ox Pulse Ox 12/07/20 15:10 12/07/20 11:58 12/07/20 10:15 12/07/20 10:08 88 L 88 L 12/07/20 08:15 Laboratory Results Short CBC 12/07/20 Range/Units 06:36 WBC 4.89 (4.8-10.8) K/uL Hgb 10.8 L (14.0-18.0) g/dL Hct 31.9 L (42-52) % Plt Count 126 L (130-400) K/uL BMP 12/06/20 12/06/20 12/06/20 15:45 19:52 23:10 Sodium 139 139 140 Potassium 4.3 4.1 3.7 Chloride 111 H 108 H 111 H Carbon Dioxide 25 26 24 BUN 24 H 24 H 24 H Creatinine 0.88 0.85 0.84 Glucose 178 H 235 H 197 H Calcium 7.7 L 7.8 L 7.5 L 12/07/20 06:36 Sodium 143 Potassium 3.9 Chloride 111 H Carbon Dioxide 26 BUN 23 H Creatinine 0.80 Glucose 108 H Calcium 7.9 L Liver Function 12/07/20 Range/Units 06:36 Total Bilirubin 0.4 (0.2-1) mg/dl AST 51 H (15-37) U/L ALT 43 (12-78) U/L Alkaline Phosphatase 59 (45-117) U/L Albumin 1.7 L (3.4-5.0) gm/dl Medications Administered Current Inpatient Medications Acetaminophen (Acetaminophen 325 Mg Tab) 650 mg PO Q4H PRN PRN Reason: Pain or Fever Stop: 01/05/21 03:21 Atorvastatin Calcium (Atorvastatin 40 Mg Tab) 40 mg PO QAM [facility] Stop: 01/05/21 08:59 Last Admin: 12/07/20 08:13 Dose: 40 mg Documented by: Dexamethasone (Dexamethasone 4 Mg Tab) 4 mg PO BIDM [facility] Stop: 01/05/21 07:59 Last Admin: 12/07/20 08:10 Dose: Not Given Documented by: Heparin Sodium (Porcine) (Heparin Sod 5,000 Unit/0.5 Ml Vial) 5,000 units SQ Q8 [facility] Stop: 01/05/21 13:59 Last Admin: 12/07/20 05:59 Dose: 5,000 units Documented by: Hydralazine HCl (Hydralazine Hcl 20 Mg/Ml Vial) 5 mg IV Q6H PRN PRN Reason: Hypertension Stop: 01/05/21 03:21 Potassium Chloride/Sodium Chloride (Normal Saline W/20 Meq Kcl) 20 meq in 1,000 mls @ 100 mls/hr IV .Q10H [facility] Stop: 01/05/21 16:59 Last Admin: 12/07/20 03:40 Dose: 100 mls/hr Documented by: Insulin Aspart (Insulin Aspart 100 Units/Ml 3 Ml Pen) 0 units SC ACHS [facility] Stop: 01/05/21 16:29 Last Admin: 12/07/20 12:29 Dose: 6 units Documented by: Insulin Glargine (Insulin Glargine Solostar 100 Units/Ml 3 Ml Pen) 0 units SC BID [facility]; Protocol Stop: 01/06/21 20:59 Lisinopril (Lisinopril 20 Mg Tab) 20 mg PO QAM [facility] Stop: 01/05/21 08:59 Last Admin: 12/07/20 09:42 Dose: Not Given Documented by: Miscellaneous Information (Pharmacy Glycemic Mgmt Consult) 1 ea N/A UD PRN PRN Reason: Consult Stop: 01/05/21 03:21 Nitroglycerin (Nitroglycerin Sl 0.4 Mg/Tab Tab) 0.4 mg SL UD PRN PRN Reason: Chest Pain Stop: 01/05/21 03:21 Ondansetron HCl (Ondansetron Inj 2 Mg/Ml 2 Ml Vial) 4 mg IV Q6H PRN PRN Reason: Nausea Stop: 01/05/21 03:21 Oxycodone HCl (Oxycodone Hcl 10 Mg Tabcr (Oxycontin)) 10 mg PO Q12H PRN PRN Reason: Pain Stop: 12/20/20 05:29 Pantoprazole Sodium (Pantoprazole 40 Mg Tab) 40 mg PO [facility]; Protocol Stop: 01/05/21 08:59 Last Admin: 12/07/20 08:13 Dose: 40 mg Documented by: Polyethylene Glycol (Polyethylene (Miralax) 17 Gm Pack) 17 gm PO DAILY PRN PRN Reason: Constipation Stop: 01/05/21 03:21 Zolpidem Tartrate (Zolpidem Tartrate 10 Mg Tab) 10 mg PO BID@0000,1800 [facility] Stop: 01/05/21 17:59 Last Admin: 12/07/20 01:35 Dose: Not Given Documented by:
[2020-12-07] MEDS: INSULIN GLARGINE SOLOSTAR 100 UNITS/ML 3 ML PEN SC SCH (20:10)
[2020-12-08] MEDS: NSS + 20MEQ KCL 20 MEQ/1,000 ML BAG IV SCH ×3 (01:02→21:45)
[2020-12-08] MEDS: ZOLPIDEM TARTRATE 10 MG TAB PO SCH ×2 (01:03→17:40)
[2020-12-08] MEDS: HEPARIN SOD 5,000 UNIT/0.5 ML VIAL SQ SCH ×3 (05:44→21:49)
--- NOTE | 2020-12-08 09:01 | Pharmacy Report ---
Pharmacy Glycemic Short Note 2 - Date of Service December 08, 2020 - Glycemic Short BSG Results (Last 24 hours): 12/07/20 12/07/20 12/07/20 11:40 16:49 19:51 POC Glucose 149 H 165 H 162 H 12/08/20 07:30 POC Glucose 78 OUTPATIENT ANTIDIABETIC REGIMEN: * Metformin 1000 mg PO BID ASSESSMENT: 12/08 * Pt has received 38 units of insulin over the past 24hrs * 22 units of basal with Lantus * 16 units of bolus with NovoLog * BSGs all in goal range with current orders. AM fasting BSG is on the lower end this morning at 78 mg/dl. Will decrease PM dose of Lantus to prevent LOW BSG tomorrow. 12/07: * Patient received 56 units of SQ insulin yesterday in addition to IV infusion * Fasting BSG of 101 mg/dL is at goal. * Post prandial BSG at lunch significantly improved compared to yesterday. * Patient has refused the last two doses of dexamethasone, therefore I anticipate insulin needs to decrease 12/06: * Patient admitted for HHS last night. He has been on Decadron 4 mg PO BID for 5 weeks which may have caused the HHS. * Decadron PO BID continued on admission. * Metformin on hold during admission. * Insulin drip started last night. On an average patient has required around 30 units in 6 hours. BSGs trended down and drip was paused for short time this AM. Currently BSG trending up above 200 mg/dl. * AM labs indicate that HHS has resolved. Lantus 20 units x1 dose given around 1000 today. Lantus dose scale at HS ordered based on BSG. * BSG trended down to 100 mg/dl at lunch time. Insulin drip discontinued. * Novolog ACHS ordered to start at dinner- dosing based on wt and stress of 3 to take care of steroid induced hyperglycemia from PO Decadron. PLAN FOR INPATIENT GLYCEMIC CONTROL: * Hold outpatient oral Metformin * Basal insulin - decrease * Lantus 8 units for < 140 mg/dL, 12 units for 140mg/dL or above BID * Bolus insulin * NovoLog per scale ACHS or Q6hrs while NPO * Goal Range: Low 110 mg/dL - High 140 mg/dL * Correction Factor: 20 mg/dL/unit * Nutritional / Prandial insulin per carb ratio of 1 unit per 8 grams CHO consumed PLAN FOR DISCHARGE: * HbA1c = 12.9% indicates poorly controlled diabetes. * Patient will most likely need an insulin in addition to the home Metformin regimen. Dosing to be determined.
[2020-12-08] MEDS: ATORVASTATIN 40 MG TAB PO SCH (09:34)
[2020-12-08] MEDS: lisinopril 20 MG TAB PO SCH (09:34)
[2020-12-08] MEDS: PANTOprazole 40 MG TAB PO SCH (09:34)
[2020-12-08] MEDS: dexAMETHasone 4 MG TAB PO SCH (09:34)
[2020-12-08] MEDS: INSULIN ASPART 100 UNITS/ML 3 ML PEN SC SCH ×4 (09:35→21:46)
[2020-12-08] MEDS: INSULIN GLARGINE SOLOSTAR 100 UNITS/ML 3 ML PEN SC SCH (09:36)
[2020-12-08] MEDS ORDERED: oxyCODONE HCL IR 5 MG TAB (IMMEDIATE RELEASE) PO PRN (10:53)
--- NOTE | 2020-12-08 15:05 | Hospitalist Progress Note ---
Date of Service December 08, 2020 Assessment & Plan (1) Hyperosmolar hyperglycemic state (HHS): Plan: Presented with weakness, exertional fatigue and noted to have blood sugar of more than 800 Has type 2 diabetes with HHS Has been started with intravenous fluid and intravenous insulin Glycemic pharmacist has been consulted-appreciate input and recommendation Hemoglobin A1c 12.9 Blood sugar has been improving Diabetic diet and diabetic teaching-appreciate input and recommendation His hemoglobin A1c prior to use of dexamethasone was 6.8 and he does not want to continue dexamethasone on discharge He is not planning to use any insulin on discharge He has not been taking any more dexamethasone and the blood sugar has been maintaining with minimal doses of insulin He has had diabetic education and likely be discharged on oral medications as before Electrolyte imbalance Hypophosphatemia Will be replaced and rechecked Normalized Weakness Involving mainly shoulder and pelvic girdles 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 We will get PT and OT evaluation prior to discharge (2) Type 2 diabetes mellitus: Plan: Has been on dexamethasone for the last 5 weeks for chronic neck pain Likely because of increasing blood sugar and very high hemoglobin A1c of 12.9 Prior to starting dexamethasone his A1c was 6.8 (3) HERI (acute kidney injury): Plan: Presented with creatinine of 2.01 Secondary to dehydration and HH S from diabetes type 2 Receiving intravenous fluid and the creatinine has been improving towards normal Creatinine has been normalized (4) History of cervical spinal arthrodesis: Plan: Has been getting dexamethasone for the last 5 weeks It has been helping his neck pain and does not want to discontinue the medication He plans to discontinue dexamethasone He has not been using any of his dexamethasone for the last 2 to 3 days and the blood sugar is improved on that (5) Hypertension: Plan: Remains the lower side of normal (6) Hyperlipidemia: Plan: Continue statin (7) GERD (gastroesophageal reflux disease): Plan: Continue PPI Admission and Anticipated Discharge Date Admission Date: December 05, 2020 Subjective 12/06/2020 The patient was seen and examined in medical telemetry unit He was admitted with weakness and exertional fatigue and was noted to have very hyperglycemic He has been on dexamethasone for neck pain for the last 5 weeks Has been complaining of shoulder and pelvic girdle weakness but denies any other symptoms 12/07/2020 The patient was seen and examined in medical telemetry unit He remains generally weak and lethargic but otherwise denies any other symptoms His pelvic girdle and shoulder girdle weakness have been getting better 12/08/2020 The patient was seen and examined in medical telemetry unit He remains extremely weak and lethargic His blood pressure remains low at systolic 90s His dexamethasone has been stopped Still has pelvic girdle weakness Review of Systems Review of Systems: All systems reviewed and are unremarkable except as noted below Musculoskeletal: Weakness involving shoulder and pelvic girdle Physical Exam Physical Exam: Lying in bed comfortably Constitutional: well developed, well nourished, + ill appearing and + obese Eyes: PERRL, conjunctivae normal, anicteric sclerae ENMT: external ear and nose normal, oropharynx normal Neck: trachea midline, no thyromegaly Respiratory: no respiratory distress Auscultation: lungs clear to auscultation bilaterally Cardiovascular: Rate/Rhythm: regular rate, regular rhythm and + tachycardic Heart Sounds: normal S1 and normal S2; no murmur Extremities: no edema Gastrointestinal (Abdomen): Inspection/Auscultation: normal bowel sounds; abdomen not distended Percussion/Palpation: abdomen soft; abdomen nontender Musculoskeletal: With arthritis but has shoulder and pelvic girdle weakness Neurologic: Alert, awake and oriented x3. Generally weak but no focal neurological deficit Lymphatic: no cervical or axillary lymphadenopathy Results & Data Results & Data ([facility]) Vital Signs (Past 12 Hours) Vital Signs Temp Pulse Pulse Resp BP BP Pulse Ox 12/08/20 13:10 95 12/08/20 11:06 36.8 C 106 H 16 116/73 91 12/08/20 08:30 36.4 C L 92 H 16 125/73 90 12/08/20 08:00 88 12/08/20 03:39 37.2 C 93 H 20 90/48 L 89 L Medications Administered Current Inpatient Medications Acetaminophen (Acetaminophen 325 Mg Tab) 650 mg PO Q4H PRN PRN Reason: Pain or Fever Stop: 01/05/21 03:21 Atorvastatin Calcium (Atorvastatin 40 Mg Tab) 40 mg PO QAM [facility] Stop: 01/05/21 08:59 Last Admin: 12/08/20 09:34 Dose: 40 mg Documented by: Heparin Sodium (Porcine) (Heparin Sod 5,000 Unit/0.5 Ml Vial) 5,000 units SQ Q8 [facility] Stop: 01/05/21 13:59 Last Admin: 12/08/20 13:02 Dose: 5,000 units Documented by: Hydralazine HCl (Hydralazine Hcl 20 Mg/Ml Vial) 5 mg IV Q6H PRN PRN Reason: Hypertension Stop: 01/05/21 03:21 Potassium Chloride/Sodium Chloride (Normal Saline W/20 Meq Kcl) 20 meq in 1,000 mls @ 100 mls/hr IV .Q10H [facility] Stop: 01/05/21 16:59 Last Admin: 12/08/20 10:56 Dose: 100 mls/hr Documented by: Insulin Aspart (Insulin Aspart 100 Units/Ml 3 Ml Pen) 0 units SC ACHS [facility] Stop: 01/05/21 16:29 Last Admin: 12/08/20 12:55 Dose: 6 units Documented by: Lisinopril (Lisinopril 20 Mg Tab) 20 mg PO [facility] Stop: 01/05/21 08:59 Last Admin: 12/08/20 09:34 Dose: 20 mg Documented by: Miscellaneous Information (Pharmacy Glycemic Mgmt Consult) 1 ea N/A UD PRN PRN Reason: Consult Stop: 01/05/21 03:21 Nitroglycerin (Nitroglycerin Sl 0.4 Mg/Tab Tab) 0.4 mg SL UD PRN PRN Reason: Chest Pain Stop: 01/05/21 03:21 Ondansetron HCl (Ondansetron Inj 2 Mg/Ml 2 Ml Vial) 4 mg IV Q6H PRN PRN Reason: Nausea Stop: 01/05/21 03:21 Oxycodone HCl (Oxycodone Hcl Ir 5 Mg Tab (Immediate Release)) 5 mg PO Q12H PRN PRN Reason: Pain Stop: 12/20/20 05:29 Pantoprazole Sodium (Pantoprazole 40 Mg Tab) 40 mg PO [facility]; Protocol Stop: 01/05/21 08:59 Last Admin: 12/08/20 09:34 Dose: 40 mg Documented by: Polyethylene Glycol (Polyethylene (Miralax) 17 Gm Pack) 17 gm PO DAILY PRN PRN Reason: Constipation Stop: 01/05/21 03:21 Zolpidem Tartrate (Zolpidem Tartrate 10 Mg Tab) 10 mg PO BID@0000,1800 [facility] Stop: 01/05/21 17:59 Last Admin: 12/08/20 01:03 Dose: Not Given Documented by:
[2020-12-08] MEDS ORDERED: SODIUM CHLORIDE 0.9% 500 ML IV SCH (20:30)
[2020-12-09] MEDS: ZOLPIDEM TARTRATE 10 MG TAB PO SCH ×3 (01:40→23:08)
[2020-12-09] MEDS: HEPARIN SOD 5,000 UNIT/0.5 ML VIAL SQ SCH ×3 (05:27→20:44)
[2020-12-09] MEDS: NSS + 20MEQ KCL 20 MEQ/1,000 ML BAG IV SCH ×2 (07:11→19:38)
[2020-12-09 08:31] LABS: Hematocrit (blood only) 37.1 % (42-52); Hemoglobin 12.7 g/dL (14.0-18.0); Mean Corpuscular Hemoglobin 33.8 pg (25-34); Mean Corpuscular Hgb Conc 34.2 g/dL (32-36); Mean Corpuscular Volume 98.7 fL (80-100); Mean Platelet Volume 11.1 fL (7.4-10.4); Nucleated RBC # (auto) 0.08 K/uL (0-0); Nucleated RBC % (auto) 1.7 %; Platelet Count 110 K/uL (130-400); RDW Coefficient of Variation 13.9 % (11.5-14.5); RDW Standard Deviation 49.4 fL (36.4-46.3); Red Blood Count 3.76 M/uL (4.7-6.1); White Blood Count 4.63 K/uL (4.8-10.8)
[2020-12-09] MEDS: PANTOprazole 40 MG TAB PO SCH (08:34)
[2020-12-09] MEDS: ATORVASTATIN 40 MG TAB PO SCH (08:35)
[2020-12-09] MEDS: INSULIN ASPART 100 UNITS/ML 3 ML PEN SC SCH ×4 (08:35→20:39)
[2020-12-09 08:50] LABS: Albumin Level 1.7 gm/dl (3.4-5.0); Calcium 7.9 mg/dl (8.5-10.1); Creatinine Clr Calc Pharmacy 97.3 ml/min; Est GFR (African American) 103.6 ml/min; Est GFR (Non-African American) 89.4 ml/min; Magnesium 2.3 mg/dl (1.8-2.4); Potassium 3.6 mmol/L (3.5-5.1)
[2020-12-09 08:53] LABS: Albumin Globulin Ratio 0.5 (0.9-2); Bilirubin,Total 0.8 mg/dl (0.2-1); Globulin 3.3 gm/dl (2.5-4.0); Phosphorus 2.2 mg/dl (2.5-4.9)
--- NOTE | 2020-12-09 09:14 | Pharmacy Report ---
Pharmacy Glycemic Short Note 2 - Date of Service December 09, 2020 - Glycemic Short BSG Results (Last 24 hours): 12/08/20 12/08/20 12/08/20 11:15 16:49 20:33 Glucose POC Glucose 174 H 114 H 135 H 12/09/20 12/09/20 07:43 07:48 Glucose 201 H POC Glucose 202 H OUTPATIENT ANTIDIABETIC REGIMEN: * Metformin 1000 mg PO BID ASSESSMENT: 12/09 * Lantus dc by hospitalist last evening. Plan is to continue with bolus insulin monotherapy since dexamethasone stopped. * Will resume metformin at DC 12/08 * Pt has received 38 units of insulin over the past 24hrs * 22 units of basal with Lantus * 16 units of bolus with NovoLog * BSGs all in goal range with current orders. AM fasting BSG is on the lower end this morning at 78 mg/dl. Will decrease PM dose of Lantus to prevent LOW BSG tomorrow. 12/07: * Patient received 56 units of SQ insulin yesterday in addition to IV infusion * Fasting BSG of 101 mg/dL is at goal. * Post prandial BSG at lunch significantly improved compared to yesterday. * Patient has refused the last two doses of dexamethasone, therefore I anticipate insulin needs to decrease 12/06: * Patient admitted for HHS last night. He has been on Decadron 4 mg PO BID for 5 weeks which may have caused the HHS. * Decadron PO BID continued on admission. * Metformin on hold during admission. * Insulin drip started last night. On an average patient has required around 30 units in 6 hours. BSGs trended down and drip was paused for short time this AM. Currently BSG trending up above 200 mg/dl. * AM labs indicate that HHS has resolved. Lantus 20 units x1 dose given around 1000 today. Lantus dose scale at HS ordered based on BSG. * BSG trended down to 100 mg/dl at lunch time. Insulin drip discontinued. * Novolog ACHS ordered to start at dinner- dosing based on wt and stress of 3 to take care of steroid induced hyperglycemia from PO Decadron. PLAN FOR INPATIENT GLYCEMIC CONTROL: * Hold outpatient oral Metformin * Basal insulin * DC * Bolus insulin * NovoLog per scale ACHS or Q6hrs while NPO * Goal Range: Low 110 mg/dL - High 140 mg/dL * Correction Factor: 20 mg/dL/unit * Nutritional / Prandial insulin per carb ratio of 1 unit per 8 grams CHO consumed PLAN FOR DISCHARGE: * HbA1c = 12.9% this is falsely elevated due to recent steroid use. Previous A1c was 6.8% prior to starting dexamethasone. BSGs/A1c will improve without dexamethasone. Resume metformin at ct.
[2020-12-09 09:17] LABS: Basophils # (auto) 0.02 K/uL (0-0.2); Basophils % (auto) 0.4 %; Eosinophils # (auto) 0.01 K/uL (0-0.5); Eosinophils % (auto) 0.2 %; Immature Granulocytes # (auto) 0.28 K/uL (0.00-0.02); Lymphocytes # (auto) 0.52 K/uL (1.2-3.4); Lymphocytes % (auto) 11.2 %; Monocytes % (auto) 6.5 %; Neutrophils % (auto) 75.7 %
[2020-12-09] MEDS: lisinopril 20 MG TAB PO SCH (10:31)
--- NOTE | 2020-12-09 12:24 | Hospitalist Progress Note ---
Date of Service December 09, 2020 Assessment & Plan (1) Hyperosmolar hyperglycemic state (HHS): Plan: Presented with weakness, exertional fatigue and noted to have blood sugar of more than 800 Has type 2 diabetes with HHS Has been started with intravenous fluid and intravenous insulin Glycemic pharmacist has been consulted-appreciate input and recommendation Hemoglobin A1c 12.9 Blood sugar has been improving Diabetic diet and diabetic teaching-appreciate input and recommendation His hemoglobin A1c prior to use of dexamethasone was 6.8 and he does not want to continue dexamethasone on discharge He is not planning to use any insulin on discharge He has not been taking any more dexamethasone and the blood sugar has been maintaining with minimal doses of insulin He has had diabetic education and likely be discharged on oral medications as before Blood sugar running minimally high and is controlled with sliding scale insulin coverage Lantus has been discontinued He will be given Metformin, his home medication on discharge Electrolyte imbalance Hypophosphatemia Will be replaced and rechecked Normalized Weakness Involving mainly shoulder and pelvic girdles 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 We will get PT and OT evaluation prior to discharge PT OT recommended rehab (2) Type 2 diabetes mellitus: Plan: Has been on dexamethasone for the last 5 weeks for chronic neck pain Likely because of increasing blood sugar and very high hemoglobin A1c of 12.9 Prior to starting dexamethasone his A1c was 6.8 Appreciate input and recommendation from radio equipment installer (3) HERI (acute kidney injury): Plan: Presented with creatinine of 2.01 Secondary to dehydration and HH S from diabetes type 2 Receiving intravenous fluid and the creatinine has been improving towards normal Creatinine has been normalized (4) History of cervical spinal arthrodesis: Plan: Has been getting dexamethasone for the last 5 weeks It has been helping his neck pain and does not want to discontinue the medication He plans to discontinue dexamethasone He has not been using any of his dexamethasone for the last 2 to 3 days and the blood sugar is improved on that He was advised to have an appointment with his pain therapist and also orthopedic surgeon as an outpatient for ongoing neck pain (5) Hypertension: Plan: Remains the lower side of normal (6) Hyperlipidemia: Plan: Continue statin (7) GERD (gastroesophageal reflux disease): Plan: Continue PPI Admission and Anticipated Discharge Date Admission Date: December 05, 2020 Subjective 12/06/2020 The patient was seen and examined in medical telemetry unit He was admitted with weakness and exertional fatigue and was noted to have very hyperglycemic He has been on dexamethasone for neck pain for the last 5 weeks Has been complaining of shoulder and pelvic girdle weakness but denies any other symptoms 12/07/2020 The patient was seen and examined in medical telemetry unit He remains generally weak and lethargic but otherwise denies any other symptoms His pelvic girdle and shoulder girdle weakness have been getting better 12/08/2020 The patient was seen and examined in medical telemetry unit He remains extremely weak and lethargic His blood pressure remains low at systolic 90s His dexamethasone has been stopped Still has pelvic girdle weakness 12/09/2020 The patient was seen and examined in medical telemetry unit He remains weak and lethargic but wants to go home Denies any more neck pain and the weakness involving the legs are improving He has had PT evaluation and was recommended to go to rehab Review of Systems Review of Systems: All systems reviewed and are unremarkable except as noted below Musculoskeletal: Weakness involving shoulder and pelvic girdle Physical Exam Physical Exam: Lying in bed comfortably Constitutional: well developed, well nourished, + ill appearing and + obese Eyes: PERRL, conjunctivae normal, anicteric sclerae ENMT: external ear and nose normal, oropharynx normal Neck: trachea midline, no thyromegaly Respiratory: no respiratory distress Auscultation: lungs clear to auscultation bilaterally Cardiovascular: Rate/Rhythm: regular rate, regular rhythm and + tachycardic Heart Sounds: normal S1 and normal S2; no murmur Extremities: no edema Gastrointestinal (Abdomen): Inspection/Auscultation: normal bowel sounds; abdomen not distended Percussion/Palpation: abdomen soft; abdomen nontender Musculoskeletal: No significant arthritis involving any joint. Weakness in pelvic girdle is diminished Neurologic: Alert, awake and oriented x3. No focal sensory and motor deficit appreciated Lymphatic: no cervical or axillary lymphadenopathy Results & Data Results & Data ([facility]) Vital Signs (Past 12 Hours) Vital Signs Temp Pulse Pulse Resp BP BP Pulse Ox 12/09/20 08:24 37.1 C 112 H 16 106/71 93 12/09/20 04:00 36.3 C L 89 18 96/59 L 93 12/09/20 02:06 94 H Laboratory Results Short CBC 12/09/20 Range/Units 07:22 WBC 4.63 L (4.8-10.8) K/uL Hgb 12.7 L (14.0-18.0) g/dL Hct 37.1 L (42-52) % Plt Count 110 L (130-400) K/uL BMP 12/09/20 07:43 Sodium 139 Potassium 3.6 Chloride 109 H Carbon Dioxide 22 BUN 11 Creatinine 0.81 Glucose 201 H Calcium 7.9 L Liver Function 12/09/20 Range/Units 07:43 Total Bilirubin 0.8 (0.2-1) mg/dl AST 69 H (15-37) U/L ALT 53 (12-78) U/L Alkaline Phosphatase 75 (45-117) U/L Albumin 1.7 L (3.4-5.0) gm/dl Medications Administered Current Inpatient Medications Acetaminophen (Acetaminophen 325 Mg Tab) 650 mg PO Q4H PRN PRN Reason: Pain or Fever Stop: 01/05/21 03:21 Atorvastatin Calcium ([facility] 40 Mg Tab) [facility]: 01/05/21 08:59 Last Admin: 12/09/20 08:35 Dose: 40 mg Documented by: Heparin Sodium (Porcine) (Heparin Sod 5,000 Unit/0.5 Ml Vial) 5,000 units SQ Q8 [facility] Stop: 01/05/21 13:59 Last Admin: 12/09/20 05:27 Dose: 5,000 units Documented by: Hydralazine HCl (Hydralazine Hcl 20 Mg/Ml Vial) 5 mg IV Q6H PRN PRN Reason: Hypertension Stop: 01/05/21 03:21 Potassium Chloride/Sodium Chloride (Normal Saline W/20 Meq Kcl) 20 meq in 1,000 mls @ 100 mls/hr IV .Q10H [facility] Stop: 01/05/21 16:59 Last Admin: 12/09/20 07:11 Dose: 100 mls/hr Documented by: Insulin Aspart (Insulin Aspart 100 Units/Ml 3 Ml Pen) 0 units SC ACHS [facility] Stop: 01/05/21 16:29 Last Admin: 12/09/20 12:26 Dose: 5 units Documented by: Lisinopril (Lisinopril 20 Mg Tab) 20 mg PO QAM [facility] Stop: 01/05/21 08:59 Last Admin: 12/09/20 10:31 Dose: Not Given Documented by: Miscellaneous Information (Pharmacy Glycemic Mgmt Consult) 1 ea N/A UD PRN PRN Reason: Consult Stop: 01/05/21 03:21 Nitroglycerin (Nitroglycerin Sl 0.4 Mg/Tab Tab) 0.4 mg SL UD PRN PRN Reason: Chest Pain Stop: 01/05/21 03:21 Ondansetron HCl (Ondansetron Inj 2 Mg/Ml 2 Ml Vial) 4 mg IV Q6H PRN PRN Reason: Nausea Stop: 01/05/21 03:21 Oxycodone HCl (Oxycodone Hcl Ir 5 Mg Tab (Immediate Release)) 5 mg PO Q12H PRN PRN Reason: Pain Stop: 12/20/20 05:29 Pantoprazole Sodium (Pantoprazole 40 Mg Tab) 40 mg PO [facility]; Protocol Stop: 01/05/21 08:59 Last Admin: 12/09/20 08:34 Dose: 40 mg Documented by: Polyethylene Glycol (Polyethylene (Miralax) 17 Gm Pack) 17 gm PO DAILY PRN PRN Reason: Constipation Stop: 01/05/21 03:21 Zolpidem Tartrate (Zolpidem Tartrate 10 Mg Tab) 10 mg PO BID@0000,1800 [facility] Stop: 01/05/21 17:59 Last Admin: 12/09/20 01:40 Dose: Not Given Documented by:
[2020-12-10] MEDS: NSS + 20MEQ KCL 20 MEQ/1,000 ML BAG IV SCH (03:38)
[2020-12-10] MEDS: ACETAMINOPHEN 325 MG TAB PO PRN ×2 (06:28→17:24)
[2020-12-10] MEDS: HEPARIN SOD 5,000 UNIT/0.5 ML VIAL SQ SCH ×3 (06:31→23:12)
[2020-12-10 08:18] LABS: Hematocrit (blood only) 34.4 % (42-52); Hemoglobin 12.1 g/dL (14.0-18.0); Mean Corpuscular Hemoglobin 33.7 pg (25-34); Mean Corpuscular Hgb Conc 35.2 g/dL (32-36); Mean Corpuscular Volume 95.8 fL (80-100); Mean Platelet Volume 10.1 fL (7.4-10.4); Nucleated RBC # (auto) 0.06 K/uL (0-0); Nucleated RBC % (auto) 1.2 %; Platelet Count 136 K/uL (130-400); RDW Coefficient of Variation 13.9 % (11.5-14.5); RDW Standard Deviation 47.9 fL (36.4-46.3); Red Blood Count 3.59 M/uL (4.7-6.1); White Blood Count 5.05 K/uL (4.8-10.8)
[2020-12-10] MEDS: ATORVASTATIN 40 MG TAB PO SCH (08:34)
[2020-12-10] MEDS: PANTOprazole 40 MG TAB PO SCH (08:34)
[2020-12-10] MEDS: INSULIN ASPART 100 UNITS/ML 3 ML PEN SC SCH ×4 (08:34→20:46)
[2020-12-10] MEDS: lisinopril 20 MG TAB PO SCH (08:34)
[2020-12-10 08:37] LABS: Basophils # (auto) 0.01 K/uL (0-0.2); Basophils % (auto) 0.2 %; Eosinophils # (auto) 0.05 K/uL (0-0.5); Immature Granulocytes % (auto) 5.9 %; Lymphocytes # (auto) 0.65 K/uL (1.2-3.4); Lymphocytes % (auto) 12.9 %; Monocytes # (auto) 0.24 K/uL (0.11-0.59); Monocytes % (auto) 4.8 %; Neutrophils % (auto) 75.2 %
[2020-12-10] MEDS: FUROSEMIDE 40 MG in SYRINGE 0 ML IV ONE ×2 (08:57→09:51)
[2020-12-10 09:03] LABS: BUN Creatinine Ratio 14.8 (10-20); Calcium 7.8 mg/dl (8.5-10.1); Creatinine Clr Calc Pharmacy 129.1 ml/min; Est GFR (African American) 116.5 ml/min; Est GFR (Non-African American) 100.5 ml/min
--- NOTE | 2020-12-10 11:34 | Hospitalist Progress Note ---
Date of Service December 10, 2020 Assessment & Plan (1) Hyperosmolar hyperglycemic state (HHS): Plan: Presented with weakness, exertional fatigue and noted to have blood sugar of more than 800 Has type 2 diabetes with HHS Has been started with intravenous fluid and intravenous insulin Glycemic pharmacist has been consulted-appreciate input and recommendation Hemoglobin A1c 12.9 Blood sugar has been improving Diabetic diet and diabetic teaching-appreciate input and recommendation His hemoglobin A1c prior to use of dexamethasone was 6.8 and he does not want to continue dexamethasone on discharge He is not planning to use any insulin on discharge He has not been taking any more dexamethasone and the blood sugar has been maintaining with minimal doses of insulin He has had diabetic education and likely be discharged on oral medications as before Blood sugar running minimally high and is controlled with sliding scale insulin coverage Lantus has been discontinued He will be given Metformin, his home medication on discharge Blood sugar is maintained with sliding scale-plan to discharge on oral Metformin as before Electrolyte imbalance Hypophosphatemia Will be replaced and rechecked Normalized Weakness Involving mainly shoulder and pelvic girdles 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 We will get PT and OT evaluation prior to discharge PT OT recommended rehab Awaiting placement Chest x-ray showed mild pulmonary edema Lasix 40 mg intravenously given today 12/10/2020 Repeat x-ray at 1 PM (2) Type 2 diabetes mellitus: Plan: Has been on dexamethasone for the last 5 weeks for chronic neck pain Likely because of increasing blood sugar and very high hemoglobin A1c of 12.9 Prior to starting dexamethasone his A1c was 6.8 Appreciate input and recommendation from clinical educator (3) HERI (acute kidney injury): Plan: Presented with creatinine of 2.01 Secondary to dehydration and HH S from diabetes type 2 Receiving intravenous fluid and the creatinine has been improving towards normal Creatinine has been normalized (4) History of cervical spinal arthrodesis: Plan: Has been getting dexamethasone for the last 5 weeks It has been helping his neck pain and does not want to discontinue the medication He plans to discontinue dexamethasone He has not been using any of his dexamethasone for the last 2 to 3 days and the blood sugar is improved on that He was advised to have an appointment with his pain therapist and also or thopedic surgeon as an outpatient for ongoing neck pain (5) Hypertension: Plan: Remains the lower side of normal (6) Hyperlipidemia: Plan: Continue statin (7) GERD (gastroesophageal reflux disease): Plan: Continue PPI Admission and Anticipated Discharge Date Admission Date: December 05, 2020 Subjective 12/06/2020 The patient was seen and examined in medical telemetry unit He was admitted with weakness and exertional fatigue and was noted to have very hyperglycemic He has been on dexamethasone for neck pain for the last 5 weeks Has been complaining of shoulder and pelvic girdle weakness but denies any other symptoms 12/07/2020 The patient was seen and examined in medical telemetry unit He remains generally weak and lethargic but otherwise denies any other symptoms His pelvic girdle and shoulder girdle weakness have been getting better 12/08/2020 The patient was seen and examined in medical telemetry unit He remains extremely weak and lethargic His blood pressure remains low at systolic 90s His dexamethasone has been stopped Still has pelvic girdle weakness 12/09/2020 The patient was seen and examined in medical telemetry unit He remains weak and lethargic but wants to go home Denies any more neck pain and the weakness involving the legs are improving He has had PT evaluation and was recommended to go to rehab 12/10/2020 The patient was seen and examined in medical telemetry unit He complains of generalized weakness but does not have any shortness of breath and/or palpitation His weakness in the legs persists Review of Systems Review of Systems: All systems reviewed and are unremarkable except as noted below Musculoskeletal: Weakness involving shoulder and pelvic girdle Physical Exam Physical Exam: Lying in bed comfortably very anxious Constitutional: well developed, well nourished, + ill appearing and + obese Eyes: PERRL, conjunctivae normal, anicteric sclerae ENMT: external ear and nose normal, oropharynx normal Neck: trachea midline, no thyromegaly Respiratory: no respiratory distress Auscultation: lungs clear to auscultation bilaterally Cardiovascular: Rate/Rhythm: regular rate, regular rhythm and + tachycardic Heart Sounds: normal S1 and normal S2; no murmur Extremities: no edema Gastrointestinal (Abdomen): Inspection/Auscultation: normal bowel sounds; abdomen not distended Percussion/Palpation: abdomen soft; abdomen nontender Musculoskeletal: No acute arthritis in any joint Neurologic: Alert, awake and oriented x3. Generally weak but no focal neuro deficit Psychiatric: A+Ox3, euthymic affect Lymphatic: no cervical or axillary lymphadenopathy Results & Data Results & Data ([facility]) Vital Signs (Past 12 Hours) Vital Signs Temp Pulse Pulse Resp BP Pulse Ox 12/10/20 11:08 36.5 C 104 H 18 100/67 91 12/10/20 09:11 98 H 12/10/20 07:53 36.4 C L 95 H 18 108/67 2 L 12/10/20 06:05 36.7 C 103 H 16 113/75 92 12/10/20 03:54 36.8 C 100 H 16 123/79 90 12/10/20 01:44 94 H 12/09/20 23:34 37.1 C 97 H 16 127/74 90 Laboratory Results Short CBC 12/10/20 Range/Units 08:04 WBC 5.05 (4.8-10.8) K/uL Hgb 12.1 L (14.0-18.0) g/dL Hct 34.4 L (42-52) % Plt Count 136 (130-400) K/uL BMP 12/10/20 08:04 Sodium 143 Potassium 4.0 Chloride 112 H Carbon Dioxide 23 BUN 9 Creatinine 0.61 Glucose 122 H Calcium 7.8 L Medications Administered Current Inpatient Medications Acetaminophen (Acetaminophen 325 Mg Tab) 650 mg PO Q4H PRN PRN Reason: Pain or Fever Stop: 01/05/21 03:21 Last Admin: 12/10/20 06:28 Dose: 650 mg Documented by: Atorvastatin Calcium ([facility]atin 40 Mg Tab) [facility] Stop: 01/05/21 08:59 Last Admin: 12/10/20 08:34 Dose: 40 mg Documented by: Heparin Sodium (Porcine) (Heparin Sod 5,000 Unit/0.5 Ml Vial) 5,000 units SQ Q8 [facility] Stop: 01/05/21 13:59 Last Admin: 12/10/20 06:31 Dose: 5,000 units Documented by: Hydralazine HCl (Hydralazine Hcl 20 Mg/Ml Vial) 5 mg IV Q6H PRN PRN Reason: Hypertension Stop: 01/05/21 03:21 Insulin Aspart (Insulin Aspart 100 Units/Ml 3 Ml Pen) 0 units SC ACHS [facility] Stop: 01/05/21 16:29 Last Admin: 12/10/20 08:34 Dose: 14 units Documented by: Lisinopril (Lisinopril 20 Mg Tab) [facility] Stop: 01/05/21 08:59 Last Admin: 12/10/20 08:34 Dose: 20 mg Documented by: Miscellaneous Information (Pharmacy Glycemic Mgmt Consult) 1 ea N/A UD PRN PRN Reason: Consult Stop: 01/05/21 03:21 Nitroglycerin (Nitroglycerin Sl 0.4 Mg/Tab Tab) 0.4 mg SL UD PRN PRN Reason: Chest Pain Stop: 01/05/21 03:21 Ondansetron HCl (Ondansetron Inj 2 Mg/Ml 2 Ml Vial) 4 mg IV Q6H PRN PRN Reason: Nausea Stop: 01/05/21 03:21 Oxycodone HCl (Oxycodone Hcl Ir 5 Mg Tab (Immediate Release)) 5 mg PO Q12H PRN PRN Reason: Pain Stop: 12/20/20 05:29 Pantoprazole Sodium (Pantoprazole 40 Mg Tab) 40 mg PO [facility]; Protocol Stop: 01/05/21 08:59 Last Admin: 12/10/20 08:34 Dose: 40 mg Documented by: Polyethylene Glycol (Polyethylene (Miralax) 17 Gm Pack) 17 gm PO DAILY PRN PRN Reason: Constipation Stop: 01/05/21 03:21 Zolpidem Tartrate (Zolpidem Tartrate 10 Mg Tab) 10 mg PO BID@0000,1800 [facility] Stop: 01/05/21 17:59 Last Admin: 12/09/20 23:08 Dose: Not Given Documented by:
--- NOTE | 2020-12-10 13:33 | XRay Report ---
XR chest 2V PA/lateral INDICATION: MN ^chf. TECHNIQUE: AP and lateral frontal radiograph of the chest was obtained. Comparison: Comparison is made to chest one view 12/06/2020 FINDINGS: No lines and tubes are seen. The cardiomediastinal silhouette is normal. Interval decrease in promine nce of the pulmonary vasculature. There is interval development of linear densities in the right midl citlali and left peripheral lung. Small bilateral pleural effusions noted. IMPRESSION: 1. Interval development of linear densities in the bilateral mid lungs likely representing atelectas is. 2. Interval resolution of pulmonary edema. 3. Small bilateral pleural effusions. ACT 112: Negative or not required by law. Electronically signed by: Jostin Hameed M.D. 12/10/2020 1:32 PM
[2020-12-10] MEDS: ZOLPIDEM TARTRATE 10 MG TAB PO SCH ×2 (18:34→23:12)
[2020-12-11] MEDS: ACETAMINOPHEN 325 MG TAB PO PRN (04:30)
[2020-12-11] MEDS: HEPARIN SOD 5,000 UNIT/0.5 ML VIAL SQ SCH (05:34)
[2020-12-11] MEDS: PANTOprazole 40 MG TAB PO SCH (08:03)
[2020-12-11] MEDS: lisinopril 20 MG TAB PO SCH (08:04)
[2020-12-11] MEDS: ATORVASTATIN 40 MG TAB PO SCH (08:04)
[2020-12-11] MEDS: INSULIN ASPART 100 UNITS/ML 3 ML PEN SC SCH (08:07)
--- NOTE | 2020-12-11 09:37 | Hospitalist Progress Note ---
Date of Service December 11, 2020 Assessment & Plan (1) Hyperosmolar hyperglycemic state (HHS): Plan: Presented with weakness, exertional fatigue and noted to have blood sugar of more than 800 Has type 2 diabetes with HHS Has been started with intravenous fluid and intravenous insulin Glycemic pharmacist has been consulted-appreciate input and recommendation Hemoglobin A1c 12.9 Blood sugar has been improving Diabetic diet and diabetic teaching-appreciate input and recommendation His hemoglobin A1c prior to use of dexamethasone was 6.8 and he does not want to continue dexamethasone on discharge He is not planning to use any insulin on discharge He has not been taking any more dexamethasone and the blood sugar has been maintaining with minimal doses of insulin He has had diabetic education and likely be discharged on oral medications as before Blood sugar running minimally high and is controlled with sliding scale insulin coverage Lantus has been discontinued He will be given Metformin, his home medication on discharge Blood sugar is maintained with sliding scale-plan to discharge on oral Metformin as before He will be discharged home on Metformin as an outpatient Electrolyte imbalance Hypophosphatemia Will be replaced and rechecked Normalized Weakness Involving mainly shoulder and pelvic girdles 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 We will get PT and OT evaluation prior to discharge PT OT recommended rehab He did not want to stay any longer to be approved to go to a place for rehab He understands the consequences of not going to rehab and get his strength back before he can be independent He understands that he may fall at home and break his bones or even ended up in serious condition including This was discussed in presence of his son who was agreeable to take his dad home The patient is mentally clear about the decision that he is making He will be discharged home this morning after a 2 steps O2 saturation test Chest x-ray showed mild pulmonary edema Lasix 40 mg intravenously given today 12/10/2020 Repeat x-ray at 1 PM Chest x-ray did not show any CHF (2) Type 2 diabetes mellitus: Plan: Has been on dexamethasone for the last 5 weeks for chronic neck pain Likely because of increasing blood sugar and very high hemoglobin A1c of 12.9 Prior to starting dexamethasone his A1c was 6.8 Appreciate input and recommendation from nurse informatics educator (3) HERI (acute kidney injury): Plan: Presented with creatinine of 2.01 Secondary to dehydration and HH S from diabetes type 2 Receiving intravenous fluid and the creatinine has been improving towards normal Creatinine has been normalized (4) History of cervical spinal arthrodesis: Plan: Has been getting dexamethasone for the last 5 weeks It has been helping his neck pain and does not want to discontinue the medication He plans to discontinue dexamethasone He has not been using any of his dexamethasone for the last 2 to 3 days and the blood sugar is improved on that He was advised to have an appointment with his pain therapist and also orthopedic surgeon as an outpatient for ongoing neck pain (5) Hypertension: Plan: Remains the lower side of normal (6) Hyperlipidemia: Plan: Continue statin (7) GERD (gastroesophageal reflux disease): Plan: Continue PPI Plan: He did not want to stay any longer in the hospital He was given appropriate instruction before leaving the hospital Admission and Anticipated Discharge Date Admission Date: December 05, 2020 Subjective 12/06/2020 The patient was seen and examined in medical telemetry unit He was admitted with weakness and exertional fatigue and was noted to have very hyperglycemic He has been on dexamethasone for neck pain for the last 5 weeks Has been complaining of shoulder and pelvic girdle weakness but denies any other symptoms 12/07/2020 The patient was seen and examined in medical telemetry unit He remains generally weak and lethargic but otherwise denies any other symptoms His pelvic girdle and shoulder girdle weakness have been getting better 12/08/2020 The patient was seen and examined in medical telemetry unit He remains extremely weak and lethargic His blood pressure remains low at systolic 90s His dexamethasone has been stopped Still has pelvic girdle weakness 12/09/2020 The patient was seen and examined in medical telemetry unit He remains weak and lethargic but wants to go home Denies any more neck pain and the weakness involving the legs are improving He has had PT evaluation and was recommended to go to rehab 12/10/2020 The patient was seen and examined in medical telemetry unit He complains of generalized weakness but does not have any shortness of breath and/or palpitation His weakness in the legs persists 12/11/2020 The patient was seen and examined in presence of the son and 4 or 5 nursing staff He wants to leave and he knows the consequences of falling at home and and can end up with serious problem including fracture of bones and This he was telling in front of the son and the son is in agreement that he will take his dad home He denies any other significant symptoms We will get a to do steps O2 saturation test before discharge this morning-2 steps O2 saturation showed he does not need any oxygen. Review of Systems Review of Systems: All systems reviewed and are unremarkable except as noted below Musculoskeletal: Weakness involving shoulder and pelvic girdle Physical Exam Physical Exam: Sitting on a chair in the nursing station without any acute distress Constitutional: well developed, well nourished, + ill appearing and + obese Eyes: PERRL, conjunctivae normal, anicteric sclerae ENMT: external ear and nose normal, oropharynx normal Neck: trachea midline, no thyromegaly Respiratory: no respiratory distress Auscultation: lungs clear to auscultation bilaterally Cardiovascular: Rate/Rhythm: regular rate, regular rhythm and + tachycardic Heart Sounds: normal S1 and normal S2; no murmur Extremities: no edema Gastrointestinal (Abdomen): Inspection/Auscultation: normal bowel sounds; abdomen not distended Percussion/Palpation: abdomen soft; abdomen nontender Musculoskeletal: No acute arthritis in any joint Psychiatric: A+Ox3, euthymic affect Lymphatic: no cervical or axillary lymphadenopathy Results & Data Results & Data ([facility]) Vital Signs (Past 12 Hours) Vital Signs Temp Pulse Pulse Resp BP Pulse Ox 12/11/20 07:00 36.3 C L 101 H 20 101/71 96 12/11/20 03:44 37 C 79 18 112/67 93 12/10/20 23:45 87 12/10/20 23:32 36.9 C 84 16 108/69 91 Medications Administered Current Inpatient Medications Acetaminophen (Acetaminophen 325 Mg Tab) 650 mg PO Q4H PRN PRN Reason: Pain or Fever Stop: 01/05/21 03:21 Last Admin: 12/11/20 04:30 Dose: 650 mg Documented by: Atorvastatin Calcium (Atorvastatin 40 Mg Tab) 40 mg PO QAM [facility] Stop: 01/05/21 08:59 Last Admin: 12/11/20 08:04 Dose: 40 mg Documented by: Heparin Sodium (Porcine) (Heparin Sod 5,000 Unit/0.5 Ml Vial) 5,000 units SQ Q8 [facility] Stop: 01/05/21 13:59 Last Admin: 12/11/20 05:34 Dose: 5,000 units Documented by: Hydralazine HCl (Hydralazine Hcl 20 Mg/Ml Vial) 5 mg IV Q6H PRN PRN Reason: Hypertension Stop: 01/05/21 03:21 Insulin Aspart (Insulin Aspart 100 Units/Ml 3 Ml Pen) 0 units SC ACHS [facility] Stop: 01/05/21 16:29 Last Admin: 12/11/20 08:07 Dose: 9 units Documented by: Lisinopril (Lisinopril 20 Mg Tab) [facility] Stop: 01/05/21 08:59 Last Admin: 12/11/20 08:04 Dose: 20 mg Documented by: Miscellaneous Information (Pharmacy Glycemic Mgmt Consult) 1 ea N/A UD PRN PRN Reason: Consult Stop: 01/05/21 03:21 Nitroglycerin (Nitroglycerin Sl 0.4 Mg/Tab Tab) 0.4 mg SL UD PRN PRN Reason: Chest Pain Stop: 01/05/21 03:21 Ondansetron HCl (Ondansetron Inj 2 Mg/Ml 2 Ml Vial) 4 mg IV Q6H PRN PRN Reason: Nausea Stop: 01/05/21 03:21 Oxycodone HCl (Oxycodone Hcl Ir 5 Mg Tab (Immediate Release)) 5 mg PO Q12H PRN PRN Reason: Pain Stop: 12/20/20 05:29 Pantoprazole Sodium (Pantoprazole 40 Mg Tab) 40 mg PO [facility]; Protocol Stop: 01/05/21 08:59 Last Admin: 12/11/20 08:03 Dose: 40 mg Documented by: Polyethylene Glycol (Polyethylene (Miralax) 17 Gm Pack) 17 gm PO DAILY PRN PRN Reason: Constipation Stop: 01/05/21 03:21 Zolpidem Tartrate (Zolpidem Tartrate 10 Mg Tab) 10 mg PO BID@0000,1800 [facility] Stop: 01/05/21 17:59 Last Admin: 12/10/20 23:12 Dose: Not Given Documented by:
--- NOTE | 2020-12-19 08:51 | Discharge Summary ---
Date of Service December 19, 2020 Admission HPI Per Admitting Provider DICTATED BY: Milton Akers MD DATE OF ADMISSION: 12/05/2020. CHIEF COMPLAINT: Hyperglycemia. HISTORY OF PRESENT ILLNESS: This is a 70-year-old male with past medical history significant for type 2 diabetes, hyperlipidemia, hemorrhoids, hypertension, reflux esophagitis, osteoarthrosis, cervical disk disease, myalgia, myositis, pain in thoracic spine, occipital neuralgia, cerebellar tonsillar ectopia, insomnia, who lives alone, presents with exertion and weakness and found to be hyperglycemic. The patient says he was started on dexamethasone about 5 weeks ago because of his severe neck pain. He says dexamethasone is helping a lot with his pain and also with his ambulatory status. It looks like he does not want to stop it and since last 2 weeks he is camping outside and he was feeling very weak and exhausted and sugars were very high. He was not in DKA, but sugars when he came they were like 800s, currently this has come down to 500s. He seems to be somewhat weak, speaking in somewhat low voice, but alert and oriented. Seems to be dry. He says he is feeling better now. Denies any headache. No blurred visions, no earache, no runny nose, no sore throat, no cough, no dysphagia, no chest pain, no shortness of breath, no nausea, no vomiting, no diarrhea. Has some abdominal discomfort. No blood in the stools or black stools. Normal micturition. No swelling in the legs, no rash. Admission Exam Per Admitting Provider GENERAL: The patient is of moderate build, not in acute distress. VITAL SIGNS: Temperature 36.5, pulse 92, respiratory rate 16, blood pressure 134/82, oxygen initially was 98% and currently 96% on room air. HEENT: Pupils equal, round and reactive to light. Oral mucosa dry. NECK: No JVD or neck masses. CARDIOVASCULAR: S1 and S2 heard. Regular rate and rhythm. No murmur, no gallop. RESPIRATORY SYSTEM: Normal AP diameter. No accessory muscle use. No wheezing, no crackles. ABDOMEN: Soft, bowel sounds present, nontender, no distention. CENTRAL NERVOUS SYSTEM: Cranial nerves II-XII grossly intact, nonfocal. EXTREMITIES: No edema, no erythema. Principal Diagnosis Hyperosmolar hyperglycemic state, type 2 diabetes, chronic neck pain with history of cervical arthrodesis, weakness mainly involving the legs, hypertensio n Discharge Exam Constitutional well developed, well nourished, + ill appearing and + obese Eyes PERRL, conjunctivae normal, anicteric sclerae ENMT external ear and nose normal, oropharynx normal Neck trachea midline, no thyromegaly Respiratory no respiratory distress Auscultation: lungs clear to auscultation bilaterally Cardiovascular Rate/Rhythm: regular rate, regular rhythm and + tachycardic Heart Sounds: normal S1 and normal S2; no murmur Extremities: no edema Gastrointestinal (Abdomen) Inspection/Auscultation: normal bowel sounds; abdomen not distended Percussion/Palpation: abdomen soft; abdomen nontender Psychiatric A+Ox3, euthymic affect Lymphatic no cervical or axillary lymphadenopathy Discharge Data Allergies Allergy/AdvReac Type Severity Reaction Status Date / Time Penicillins Allergy Mild Unknown Verified 12/05/20 19:46 Consultations 12/05/20 21:36 ED Decision to Admit Stat Ordered Studies 12/05/20 19:28 CT head/brain wo con Stat Diabetes Follow up Diabetes Follow-up Needed for HgbA1c >9% Hospital Course (1) Hyperosmolar hyperglycemic state (HHS): Presented with weakness, exertional fatigue and noted to have blood sugar of more than 800 Has type 2 diabetes with HHS Has been started with intravenous fluid and intravenous insulin Glycemic pharmacist has been consulted-appreciate input and recommendation Hemoglobin A1c 12.9 Blood sugar has been improving Diabetic diet and diabetic teaching-appreciate input and recommendation His hemoglobin A1c prior to use of dexamethasone was 6.8 and he does not want to continue dexamethasone on discharge He is not planning to use any insulin on discharge He has not been taking any more dexamethasone and the blood sugar has been maintaining with minimal doses of insulin He has had diabetic education and likely be discharged on oral medications as before Blood sugar running minimally high and is controlled with sliding scale insulin coverage Lantus has been discontinued He will be given Metformin, his home medication on discharge Blood sugar is maintained with sliding scale-plan to discharge on oral Metformin as before He will be discharged home on Metformin as an outpatient Electrolyte imbalance Hypophosphatemia Will be replaced and rechecked Normalized Weakness Involving mainly shoulder and pelvic girdles 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 We will get PT and OT evaluation prior to discharge PT OT recommended rehab He did not want to stay any longer to be approved to go to a place for rehab He understands the consequences of not going to rehab and get his strength back before he can be independent He understands that he may fall at home and break his bones or even ended up in serious condition including This was discussed in presence of his son who was agreeable to take his dad home The patient is mentally clear about the decision that he is making He will be discharged home this morning after a 2 steps O2 saturation test Chest x-ray showed mild pulmonary edema Lasix 40 mg intravenously given today 12/10/2020 Repeat x-ray at 1 PM Chest x-ray did not show any CHF (2) Type 2 diabetes mellitus: Has been on dexamethasone for the last 5 weeks for chronic neck pain Likely because of increasing blood sugar and very high hemoglobin A1c of 12.9 Prior to starting dexamethasone his A1c was 6.8 Appreciate input and recommendation from perinatal educator (3) HERI (acute kidney injury): Presented with creatinine of 2.01 Secondary to dehydration and HH S from diabetes type 2 Receiving intravenous fluid and the creatinine has been improving towards normal Creatinine has been normalized (4) History of cervical spinal arthrodesis: Has been getting dexamethasone for the last 5 weeks It has been helping his neck pain and does not want to discontinue the medication He plans to discontinue dexamethasone He has not been using any of his dexamethasone for the last 2 to 3 days and the blood sugar is improved on that He was advised to have an appointment with his pain therapist and also orthopedic surgeon as an outpatient for ongoing neck pain (5) Hypertension: Remains the lower side of normal (6) Hyperlipidemia: Continue statin (7) GERD (gastroesophageal reflux disease): Continue PPI He did not want to stay any longer in the hospital He was given appropriate instruction before leaving the hospital Total Time Total Time Spent Total Time Spent (In Minutes): 35 minutes Discharge Plan Discharge Items Patient Disposition: Home - Self-Care Reason For Visit: HYPERGLYCEMIA Discharge Diagnosis: Hyperosmolar hyperglycemic state, type 2 diabetes, chronic neck pain with history of cervical arthrodesis, weakness mainly involving the legs, hypertension Condition on Discharge: Fair Activity: As commented below Activity Comment: Take extreme precautions to avoid falls Non-emergency contact: Primary Care Provider Call non-emergency contact if: you have any medication questions and your symptoms worsen Follow-up/Referrals: Ken Alvarez DO [Primary Care Provider] - (Date & Time 12/13/2020 10:20 AM Provider Ken Alvarez Department [facility] ) Diet: Carb Consistent or DM2 Addtl Attending Provider Instructions: Take extreme precautions to avoid fall Please keep appointment with your primary care provider You will need to see your spine doctor for ongoing problem with your neck You need to see your pain therapist for ongoing pain in your neck Strongly advised to use less of the narcotics pain medication to avoid constipation, confusion and fall Follow the instructions about diet and blood sugar testing as per the diabetic nurse and show the results to your PCP Pending Studies at Discharge: No Stand-Alone Forms: My [facility] [employer], Smoking Cessation Medications and DC Order Prescriptions: Continued oxycodone [OxyContin] 10 mg tablet,oral only,ext.rel.12 hr 10 mg PO Q12H PRN (Reason: Pain) RF: 0 atorvastatin 40 mg Tablet 40 mg PO QAM RF: 0 lisinopril 20 mg tablet 20 mg PO QAM RF: 0 omeprazole 20 mg capsule,delayed release(DR/EC) 20 mg PO QAM RF: 0 zolpidem 10 mg tablet 10 mg PO HS RF: 0 metformin 500 mg tablet extended release 24 hr 1,000 mg PO BID RF: 0 Discontinued dexamethasone 4 mg tablet 4 mg PO . Q AFTERNOON RF: 0 Discharge Orders: Discharge Order (Routine); Ordered 12/11/20 Ordered By: Denys Sahu Admission Data Admit Date/Time: 12/05/20 23:37 Attending Provider: Denys Sahu Admit Provider: Milton Akers Primary Care Provider: Ken Alvarez Other Interventions: Discharge Summary Assessment (RN) Last Done: 12/11/20 10:03
== END 2020-12-11 10:25 | disposition home or self-care (01) | DRG 638 ==
LOC: ED 19:00 → 2N 12-06 01:36 → SUATTDRO 12-06 01:36 → 2N 12-06 02:18